=== PATIENT | male | born 1990 | race Caucasian/White ===

== ENCOUNTER 2016-12-10 01:56 | Emergency (ER) | payer MEDICAID ==
[~2016-12-10] VITALS: Ht 152.4 cm; Wt 102.1 kg
[~2016-12-10 01:56] MED LIST: NO HOME MEDS
[2016-12-10 03:30] VITALS: BP 137/89
== END 2016-12-10 03:55 | disposition home or self-care (01) ==
LOC: M ED 03:10
DX: T16.1XXA Foreign body in right ear, initial encounter (principal); Y92.9 Unspecified place or not applicable; Y93.9 Activity, unspecified; Q90.9 Down syndrome, unspecified; Z88.8 Allergy status to other drugs, medicaments and biological substances

== ENCOUNTER 2017-02-12 07:45 | Inpatient (IN) | payer MEDICAID ==
[~2017-02-12] VITALS: Ht 154.9 cm; Wt 150.0 kg
[2017-02-12] MEDS ORDERED: MORPHINE 2 MG/ML 1ML SYRINGE SC ONE (08:30)
--- NOTE | 2017-02-12 10:29 | REP ---
ABDOMEN FLAT AND UPRIGHT, PA CHEST, SEVEN VIEWS: HISTORY: Abdominal pain. The examination is very limited secondary to the patient's body habitus. Air is present in small and large intestine. There are no air fluid levels or dilated loops of intestine. There is no pneumoperitoneum. Linear density is present in the left lower lobe consistent with atelectasis or scar. IMPRESSION: 1. Nonspecific bowel gas pattern. 2. Left lower lobe atelectasis or scar. Signed by Thomas Ricardo MD 02/12/2017 10:32 A
[2017-02-12 10:50] LABS: BASO # 0.1 K/mm3 (0.0-0.2); EOS # 0.2 K/mm3 (0.0-0.50); EOS % 2.3 % (0.0-3.0); LARGE UNSTAINED CELL # 0.1 K/mm3 (0.0-0.4); LARGE UNSTAINED CELL % 0.9 % (0.0-4.0); LYMPH # 1.1 K/mm3 (1.5-6.5); LYMPH % 11.7 % (24.0-44.0); MEAN CORPUSCULAR HEMOGLOBIN 32.8 pg (27.0-33.0); MEAN CORPUSCULAR HGB CONC 31.7 g/dl (32.0-36.5); MEAN CORPUSCULAR VOLUME 103.6 fl (80.0-96.0); MONO # 0.4 K/mm3 (0.0-0.8); MONO % 4.1 % (0.0-5.0); NEUTROPHILS # 7.3 K/mm3 (1.8-7.7); NEUTROPHILS % 80.1 % (36.0-66.0); PLATELET COUNT, AUTOMATED 186 k/mm3 (150-450); RED CELL DISTRIBUTION WIDTH 15.3 % (11.5-14.5); WHITE BLOOD COUNT 9.1 K/mm3 (4.0-10.0)
[2017-02-12 11:17] LABS: ALBUMIN 2.9 GM/DL (3.2-5.2); ALBUMIN/GLOBULIN RATIO 0.59 (1.00-1.93); ALKALINE PHOSPHATASE 83 U/L (45-117); ALT/SGPT 29 U/L (12-78); ANION GAP 6 MEQ/L (8-16); AST/SGOT 23 U/L (15-37); BILIRUBIN,DIRECT 0.3 MG/DL (0.0-0.2); BILIRUBIN,TOTAL 0.9 MG/DL (0.2-1.0); BLOOD UREA NITROGEN 11 MG/DL (7-18); CALCIUM LEVEL 8.6 MG/DL (8.5-10.1); CARBON DIOXIDE LEVEL 31 MEQ/L (21-32); CHLORIDE LEVEL 102 MEQ/L (98-107); CREATININE FOR GFR 1.01 MG/DL (0.70-1.30); GLOMERULAR FILTRATION RATE > 60.0 (>60); GLUCOSE, FASTING 104 MG/DL (70-105); POTASSIUM SERUM 4.3 MEQ/L (3.5-5.1); SODIUM LEVEL 139 MEQ/L (136-145); TOTAL PROTEIN 7.8 GM/DL (6.4-8.2)
--- NOTE | 2017-02-12 12:12 | REP ---
CT CHEST WITHOUT CONTRAST: 02/12/2017. Comparison: Acute abdominal series 02/12/2017, portable chest 01/08/2015, abdominal series 07/08/2014. Clinical history: Hypoxia, airspace opacities on AP chest today. Findings: Noncontrast techniques with coronal and sagittal images are provided. There are small bilateral effusions which do extend to the apex. There is underlying interstitial infiltrates and patchy air space densities in both lungs. These are combined with some lateral hyperdense pleural plaques and may reflect small calcifications. Curvilinear scar right apex. The distal trachea above the jony is difficult to evaluate because of some respiratory motion blur. Question of partial collapse of the trachea versus filling defect/mucous. Heart size not grossly enlarged. There is no pericardial thickening or effusion. The aorta is intact. There is no pathologic sized mediastinal or hilar adenopathy. No axillary or supraclavicular mass. Bones show no significant degenerative change. The manubrium is bifid. The medial clavicles, ribs, scapula and portions of shoulders visible intact. Abdomen will be described in detail on the CT abdomen and pelvis report. Impression: 1. With interstitial and alveolar airspace opacities suggesting acute and chronic process. Some underlying fibrosis with patchy atelectasis or pneumonitis may certainly be suspected. Heavier curvilinear fibrotic change in the right apex. 2. No gross cardiomegaly, pericardial thickening or effusion. No adenopathy. 3. Bones without acute finding. Small bilateral effusions. Signed by Cuong Mishra MD 02/12/2017 07:06 P
--- NOTE | 2017-02-12 12:43 | REP ---
CT abdomen and pelvis without contrast: 02/12/2017 Comparison: Acute abdominal series 02/12/2017, CT abdomen and pelvis 11/30/2012. Clinical history: Abdominal pain. Small bilateral effusions and basilar alveolar and interstitial opacities noted bilaterally, see CT chest report. There is no hiatal hernia. Liver is not grossly enlarged, but the left hepatic lobe is enlarged. There is no splenomegaly or focal splenic lesion. I see no focal hepatic mass or biliary dilatation. There is a small amount of ascites in the abdomen and extending into the pelvis along the peroneal gutters to the upper level of the pelvis. Gallbladder shows no calcified stone. Exam somewhat limited by respiratory motion blur. Pancreas grossly unremarkable. Aorta without aneurysm. No adrenal abnormality seen. The kidneys show no stone, mass, cyst or hydronephrosis. Lung window review shows no perforation or free air. No dilated small bowel loops or colon. Fluid tracking along the peroneal gutters obscures portions of the right and left colon. Bone windows show bilateral spondylolysis at L5 with discogenic endplate changes at L5- S1 and anterolisthesis grade 1. No other acute bony findings in the spine. CT pelvis: Bony hips, pelvis, SI joints, sacrum and symphysis pubis were unremarkable. Extensive subcutaneous edema in the abdominal and pelvic wall particularly the lower abdomen and pelvis representing some anasarca. It is more anterior than lateral. I do not see dilated distal left colon, sigmoid or rectum. Small bowel loops are not dilated in the pelvis. There is no pelvic lymphadenopathy and no ventral hernia. Some inguinal nodes are seen bilaterally up to 18 mm for the largest node on the right. No other adenopathy. Impression: 1. Diffuse subcutaneous edema and skin thickening anteriorly of the abdominal and pelvic wall suggesting anasarca or other cause for this edema. 2. There is no renal, ureteral or bladder stone nor hydronephrosis. 3. No small-bowel dilatation, colonic obstruction or acute inflammatory process. 4. Enlarged left lobe of the liver, but small amount of ascites and fluid tracking into the peroneal gutters on both sides. No intra-abdominal or pelvic adenopathy. Bilateral inguinal adenopathy up to 18 mm for the largest nodes in short axis. Signed by Cuong Mishra MD 02/12/2017 07:08 P
[2017-02-12] MEDS: IPRATROPIUM 0.5MG/ALBUTEROL 2.5MG INH SOL UD 3ML (DUONEB)(J7620) NEB SCH ×5 (14:00→19:08)
--- NOTE | 2017-02-12 14:28 | HPEPDOC ---
Medical History and Physical Date of Admission 02/12/17 History and Physical ATTENDING: Dr. Lloyd PCP: None currently. Has upcoming appointment with Dr. Sybil Briceno to establish care. CC: abdominal pain HPI: 27yoM with a past medical history significant for Down syndrome accompanied by his mother, Kelly. His mother states he is nonverbal and typically does not respond to questioning. He had relayed to her this morning at about 6 AM that he had abdominal discomfort. There was no apparent nausea, vomiting, diarrhea, constipation, fevers or chills. He did not eat this morning. She has not noticed any coughing or rhinorrhea. No apparent sore throat. She denies any difficulty with swallowing, coughing when he is eating or history of dysphagia. He does become short of breath with climbing stairs. He does not use any assistive devices for ambulation. O2 sat on arrival to ED was noted to be 85% on RA. Currently 96% High flow canula. There is been no apparent change in bowel or bladder habits. Upon presentation to the hospital the patient was found to have possible pneumonia, thus the hospitalist team was consulted. PMHx: Seizure 1 as child 15 years ago. Asthma as child. No medications currently. History of Atrioventricular defect Down syndrome HUNTER/CPAP Morbid Obesity. BMI 64.4 Psoriasis PSHX: Adenoidectomy Tonsillectomy Tympanostomy tubes Atrioventricular defect repair SOCHX: Resides in: [facility], lives with mother. His mother Kelly is his legal guardian. Marital Status: Single Tobacco use: None ETOH: None Illicit Drugs: Denies Recent travel: None Advanced directives: None FAMHX: Mother: Alive, hypertension, hyperlipidemia Father: , cancer Siblings: 13 Alive, well Unexpected deaths due to medical reasons: None. ROS: Patient is not able to provide history. The patient's mother states they do have some difficulty caring for him at home because he tends to not cooperate with personal care such as nail cutting or dental care. Currently he does not receive any services in or outside the home and his mother would be interested in pursuing this. She also states she is attempting to set up a dental provider related to poor dentition. PE: GEN: 27yo male, appears stated age. Morbidly obese. Poor personal hygiene. Appearing in no acute distress sitting on the emergency department stretcher. Alert. Does not respond to questions. Will follow simple commands. HEENT: Normocephalic, atraumatic. Pupils are equal, round, and reactive to light. No nystagmus appreciated. Sclera are nonicteric. Conjunctiva without injection. Nose midline. No nasal drainage noted. EACs both patent with scaling skin noted. TMs both visualized and hebert with good cone of light, no bulging or erythema. No facial asymmetry. Moist mucous membranes. Dentition poor. Pharynx unable to be visualized related to patient cooperation. Neck supple, trachea midline. No lymphadenopathy or thyromegaly appreciated. CHEST: Regular rate and rhythm, +S1, +S2 LUNGS: Decreased breath sounds bilaterally. No noted wheezes, rales, or rhonchi , however poor effort. Breathing appears symmetric and easy. No accessory muscle use. ABD: Round, soft, non-tender, non-distended. +Bowel sounds throughout. No rebound or guarding. No apparent costovertebral angle tenderness. EXT: No lower extremity edema appreciated. SKIN: Diffuse skin scaling is noted over the upper extremities, back, abdomen and lower extremities. Overgrown nails are noted on the upper extremities and lower extremities. NEURO: No focal deficits appreciated. AXR: 1. Nonspecific bowel gas pattern. 2. Left lower lobe atelectasis or scar. CT: chest 1. With interstitial and alveolar airspace opacities suggesting acute and chronic process. Some underlying fibrosis with patchy atelectasis or pneumonitis may certainly be suspected. Heavier curvilinear fibrotic change in the right apex. 2. No gross cardiomegaly, pericardial thickening or effusion. No adenopathy. 3. Bones without acute finding. Small bilateral effusions. CT A/P 1. Diffuse subcutaneous edema and skin thickening anteriorly of the abdominal and pelvic wall suggesting anasarca or other cause for this edema. 2. There is no renal, ureteral or bladder stone nor hydronephrosis. 3. No small-bowel dilatation, colonic obstruction or acute inflammatory process. 4. Enlarged left lobe of the liver, but small amount of ascites and fluid tracking into the peroneal gutters on both sides. No intra-abdominal or pelvic adenopathy. Bilateral inguinal adenopathy up to 18 mm for the largest nodes in short axis. BLOOD CULTURES: x 2 pending. UA/UC pending A&P: 27yoM with a past medical history significant for Down syndrome accompanied by his mother, Kelly. His mother states he is nonverbal and typically does not respond to questioning. He had relayed to her this morning at about 6 AM that he had abdominal discomfort. 1. The patient will be admitted to /S for at least [address] Lloyd' s service. Patient is discussed with Dr. Nugent. 2. Pneumonia. Aspiration versus community-acquired. Initiate IV vancomycin, Zosyn, Levaquin until availability of further testing. IV fluids at 75cc/hr. Blood cultures/urine cultures pending. Monitor daily labs. Request swallowing evaluation. Nebulizer treatments. 3. Abdominal pain. Inguinal adenopathy and ascites noted on CT. IVF at 75cc/hr. IV antibiotics as above. 4. Morbid obesity. BMI noted to be 64.4. Complicates care. Add on TFT, Lipids and A1c to admission labs. 5. Down syndrome. Supportive care. Request PFS/PT/OT/ST. 6. HUNTER. Continue CPAP with home settings. 7. DVT prophylaxis. SQ Lovenox. The patient is a full code. Will need to confirm Pt has appt to establish care with Dr Briceno prior to D/C. Mother states appt is in the near future. Vital Signs Vital Signs Date Time Temp Pulse Resp B/P (MAP) Pulse Ox O2 Delivery O2 Flow Rate FiO2 02/12/17 12:17 16 140/72 (94) 96 High Flow Cannula 6.0 02/12/17 11:03 99 02/12/17 08:06 98.8 Laboratory Data Labs 24H Laboratory Tests 2 02/12/17 10:42: White Blood Count 9.1, Red Blood Count 4.90, Hemoglobin 16.1, Hematocrit 50.8, Mean Corpuscular Volume 103.6H, Mean Corpuscular Hemoglobin 32.8, Mean Corpuscular Hemoglobin Concent 31.7L, Red Cell Distribution Width 15.3H, Platelet Count 186, Neutrophils (%) (Auto) 80.1H, Lymphocytes (%) (Auto) 11.7L, Monocytes (%) (Auto) 4.1, Eosinophils (%) (Auto) 2.3, Basophils (%) (Auto) 1.0, Neutrophils # (Auto) 7.3, Lymphocytes # (Auto) 1.1L, Monocytes # (Auto) 0.4, Eosinophils # (Auto) 0.2, Basophils # (Auto) 0.1, Large Unclassified Cells % 0.9 , Large Unclassified Cells # 0.1, Anion Gap 6L, Glomerular Filtration Rate > 60.0, Calcium Level 8.6, Aspartate Amino Transf (AST/SGOT) 23, Alanine Aminotransferase (ALT/SGPT) 29, Alkaline Phosphatase 83, Total Bilirubin 0.9, Direct Bilirubin 0.3H, Total Protein 7.8, Albumin 2.9L, Albumin/Globulin Ratio 0.59L, Lipase 96 CBC/BMP Laboratory Tests 02/12/17 10:42 Red Blood Count 4.90, Mean Corpuscular Volume 103.6 H, Mean Corpuscular Hemoglobin 32.8, Mean Corpuscular Hemoglobin Concent 31.7 L, Red Cell Distribution Width 15.3 H, Neutrophils (%) (Auto) 80.1 H, Lymphocytes (%) (Auto ) 11.7 L, Monocytes (%) (Auto) 4.1, Eosinophils (%) (Auto) 2.3, Basophils (%) ( Auto) 1.0, Neutrophils # (Auto) 7.3, Lymphocytes # (Auto) 1.1 L, Monocytes # ( Auto) 0.4, Eosinophils # (Auto) 0.2, Basophils # (Auto) 0.1 Home Medications No Active Prescriptions or Reported Meds Allergies Coded Allergies: Cephalosporins (Verified Allergy, Intermediate, HIVES & RASH, 10/19/12) Nirmala Dodd Feb 12, 2017 14:28
[2017-02-12 14:46] LABS: ABG BASE EXCESS 4.5 (-2.0-2.0); ABG HCO3 33.7 MEQ/L (22.0-26.0); ABG PARTIAL PRESSURE CO2 69.9 mmHg (35.0-45.0); ABG PARTIAL PRESSURE O2 63.2 mmHg (75.0-100.0); ABG STANDARD HCO3 28.3 MEQ/L (22.0-26.0); ABG TOTAL CO2 35.8 MEQ/L (22.0-29.0); ABG pH (ARTERIAL) 7.301 UNITS (7.350-7.450)
[2017-02-12] MEDS ORDERED: methylPREDNISolone INJ 125 MG/2 ML VIAL (J2930) IV ONE (15:00)
[2017-02-12] MEDS ORDERED: IPRATROPIUM 0.5MG/ALBUTEROL 2.5MG INH SOL UD 3ML (DUONEB)(J7620) NEB PRN (15:15)
[2017-02-12] MEDS: ENOXAPARIN 40 MG/0.4 ML SYRINGE (J1650) SC SCH (15:39)
[2017-02-12 15:55] LABS: CHOLESTEROL LEVEL 127 MG/DL (<200); T UPTAKE 36 % (33-40); THYROXINE (T4) 8.6 UG/DL (4.5-12.0); TRIGLYCERIDES LEVEL 85 MG/DL (<150)
[2017-02-12] MEDS: PIPERACILLIN/TAZOBACTAM SOD 3.375 GM in D5W MINI-BAG PLUS 50 ML IV SCH ×2 (16:25→22:00)
[2017-02-12] MEDS: NS 1,000 ML IV SCH (16:25)
[2017-02-12] MEDS: LevoFLOXacin IV 750 MG in APPROPRIATE DILUENT 1 EA IV SCH (16:54)
--- NOTE | 2017-02-12 17:00 | PHACANCOPD ---
PHARMACY VANCOMYCIN DOSING Pt Demographics Demographics Patient Age:27 , Weight:154.600 , Gender: male Adjusted Body Weight Date: 02/12/17, Adjusted Body Weight: Kg Events Past 24 Hours Events Past 24 Hours: NO: Dialysis, Diuretic Therapy, Change in CrCl, Fever, Elevation in WBC, Pending Diagnostics, Pending Procedures, Other Vancomycin Vancomycin Target Ranges: 15-20 mcg/ml Vancomycin Load Y/N: Yes Load Dose Date Time Vancomycin Load Dose: 2G Date: 02/12/17 Time: 1800 Vancomycin Dose Date: 02/12/17. Current Vancomycin Dose: [1G IV Q8H] Intermittent Dosing?: No Labs Labs Item Value Date Time White Blood Count 9.1 K/mm3 02/12/17 1042 Creatinine 1.01 MG/DL 02/12/17 1042 Micro Microbiology 02/12/17 Blood Culture, Received Pending 02/12/17 Blood Culture, Received Pending Creatinine Clearance Date:02/12/17. Creatinine Clearance: [79.8]. Assessment and Plan Maintaining Current Dose?: Yes Reason for dose change: No Dose Change Pharmacist Note Pharmacist Note Date: 02/12/17. Pharmacist note: Pt. is a 27 year old male with down syndrome who was brought to the ER by his mother with symptoms of abdominal pain. During his visit it was discovered that he may have pneumonia. Pt. has no signs or symptoms of infection. Pt has no history of vanco use or MRSA at our facility. Pt will be started with Vanco 2G loading dose followed by 1G q8h@1900. A trough has been scheduled for tomorrow at 1800 just before the 4th dose. We will continue to monitor and adjust dose as needed. MARIS ROCHA PHARMACY Feb 12, 2017 17:00
[2017-02-12 17:45] VITALS: BP 134/79
[2017-02-12] MEDS ORDERED: VANCOMYCIN HCL 1,000 MG, VIAL MATE ADAPTER 1 EACH in D5W 250 ML IV ONE ×2 (19:00→20:00)
[2017-02-12] MEDS: VANCOMYCIN HCL 1,000 MG, VIAL MATE ADAPTER 1 EACH in D5W 250 ML IV SCH (19:00)
[2017-02-12 20:00] VITALS: BP 137/89
[2017-02-12 23:59] VITALS: BP 131/82
[2017-02-13] MEDS: IPRATROPIUM 0.5MG/ALBUTEROL 2.5MG INH SOL UD 3ML (DUONEB)(J7620) NEB SCH ×4 (02:07→20:46)
[2017-02-13] MEDS: VANCOMYCIN HCL 1,000 MG, VIAL MATE ADAPTER 1 EACH in D5W 250 ML IV SCH ×2 (03:00→12:13)
[2017-02-13 04:00] VITALS: BP 138/73
[2017-02-13] MEDS: PIPERACILLIN/TAZOBACTAM SOD 3.375 GM in D5W MINI-BAG PLUS 50 ML IV SCH ×4 (04:53→21:58)
[2017-02-13] MEDS: NS 1,000 ML IV SCH (05:39)
[2017-02-13 08:00] VITALS: BP 135/73
[2017-02-13] MEDS: ENOXAPARIN 40 MG/0.4 ML SYRINGE (J1650) SC SCH (10:47)
[2017-02-13 12:00] VITALS: BP 137/75
[2017-02-13] MEDS: NYSTATIN 100,000 UNITS/GM TOPICAL PWD 15 GM TOP SCH (15:51)
[2017-02-13 16:00] VITALS: BP 126/77
[2017-02-13] MEDS: LevoFLOXacin IV 750 MG in APPROPRIATE DILUENT 1 EA IV SCH (18:16)
[2017-02-13] MEDS: SODIUM CHLORIDE 0.9% INJ 10 ML SYR IV SCH (18:17)
--- NOTE | 2017-02-13 18:28 | IPNPDOC ---
Date Seen The patient was seen on 02/13/17. Progress Note Hospitalist Progress Note Subjective: Patient is very limited verbally, and has no specific complaints. Mom is with him, and notes that he seems to be breathing better than yesterday. Objective: Physical Exam: Vitals: Vital Sign - Last 24 Hours 02/12/17 02/12/17 02/12/17 02/12/17 19:08 20:00 20:00 23:59 Temp 97.8 97.9 Pulse 97 95 Resp 20 22 B/P (MAP) 137/89 (105) 131/82 (98) Pulse Ox 90 91 O2 Delivery Nasal Cannula Nasal Cannula Comfort Flow Comfort Flow O2 Flow Rate 10.0 10.0 10.0 10.0 02/13/17 02/13/17 02/13/17 02/13/17 02:07 04:00 08:00 09:17 Temp 99.0 99.1 Pulse 107 101 Resp 22 18 B/P (MAP) 138/73 (94) 135/73 (93) Pulse Ox 90 90 O2 Delivery Nasal Cannula Comfort Flow Comfort Flow Nasal Cannula O2 Flow Rate 10.0 10.0 10.0 10.0 02/13/17 02/13/17 02/13/17 02/13/17 12:00 12:00 12:46 13:00 Temp 99.6 Pulse 102 Resp 24 B/P (MAP) 137/75 (95) Pulse Ox 86 86 89 O2 Delivery High Flow Cannula Comfort Flow BIPAP/CPAP High Flow Cannula O2 Flow Rate 10.0 10.0 15.0 02/13/17 02/13/17 02/13/17 02/13/17 14:00 15:00 16:00 17:15 Temp 99.2 Pulse 94 Resp 24 B/P (MAP) 126/77 (93) Pulse Ox 86 88 91 O2 Delivery NIPPV (BIPAP/CPAP) NIPPV (BIPAP/CPAP) Comfort Flow Nasal Cannula O2 Flow Rate 10.0 10.0 General: AWake, alert, no acute distress HEENT: Normocephalic, atraumatic, extraocular movements intact CV: Regular rate and rhythm Lungs: Clear to auscultation bilaterally Abd: Obese, soft, nontender, pitting edema of the anterior abdominal wall Extremities: Bilateral knees are covered in hyperkeratotic, hyperpigmented plaques, intact pedal pulses, no edema appreciated Neuro: Alert, moving all extremities, minimally verbal Psych: Unable to assess Labs and Imaging: Laboratory Tests 02/12/17 10:42 Red Blood Count 4.90, Mean Corpuscular Volume 103.6 H, Mean Corpuscular Hemoglobin 32.8, Mean Corpuscular Hemoglobin Concent 31.7 L, Red Cell Distribution Width 15.3 H, Neutrophils (%) (Auto) 80.1 H, Lymphocytes (%) (Auto ) 11.7 L, Monocytes (%) (Auto) 4.1, Eosinophils (%) (Auto) 2.3, Basophils (%) ( Auto) 1.0, Neutrophils # (Auto) 7.3, Lymphocytes # (Auto) 1.1 L, Monocytes # ( Auto) 0.4, Eosinophils # (Auto) 0.2, Basophils # (Auto) 0.1 Assessment and Plan: 27-year-old male with Down syndrome, history of atrioventricular defect status post surgical repair, HUNTER on CPAP, morbid obesity, psoriasis, one episode of seizure as a child, childhood asthma who presented to the emergency department for abdominal pain. He has been found to have pneumonia on chest imaging. 1. Pneumonia: It is unclear if this is community-acquired or aspiration. At this time, we will continue IV vanc, Zosyn and Levaquin, but will likely narrow this tomorrow when his cultures are back. Blood cultures pending. The patient is afebrile with a normal white count but is requiring 10 L of oxygen. I suspect that his underlying HUNTER and probable obesity hypoventilation syndrome is exacerbating this. Speech therapy evaluation has cleared him for a pured diet with nectar thick liquids. Continue DuoNeb's. 2. HUNTER: Continue home CPAP 3. Prediabetes: The patient's A1c came back at 6.2. I have discussed this with his mom discussed the need for diet modification. She tells me that just in the last week and a half they have started having meals brought into the house and been significantly watching their portions. She states that in this time, he has lost 12 pounds. 4. Abdominal wall anasarca: CT of the abdomen and pelvis shows some diffuse subcutaneous edema that they describe as anasarca, and he does have pitting edema of his abdominal wall. We will assess with an echocardiogram. Stop IV fluids 5. Enlarged left liver lobe: This is noted on CT of abdomen and pelvis. LFTs and lipase are within normal limits. He will need continued follow-up of this with his PCP. DVT prophylaxis: Lovenox Dispo: change patient status to inpatient; appreciate the help of PT, OT, and case management, as this patient is requiring more care at home and his family is able to supply VS, I&O, 24H, Fishbone Vital Signs/I&O Vital Signs Date Time Temp Pulse Resp B/P (MAP) Pulse Ox O2 Delivery O2 Flow Rate FiO2 02/13/17 17:15 Nasal Cannula 10.0 02/13/17 16:00 99.2 94 24 126/77 (93) 91 I&O- Last 24 Hours up to 6 AM 02/13/17 06:00 Intake Total 1285 ml Output Total 400 ml Balance 885 ml Laboratory Data 24H LABS Laboratory Tests 2 02/13/17 18:08: Microbiology Microbiology 02/12/17 Blood Culture - Preliminary, Resulted No growth after 24 hours . All specim... 02/12/17 Blood Culture - Preliminary, Resulted No growth after 24 hours . All specim... CHASTITY BAXTER Feb 13, 2017 18:28
--- NOTE | 2017-02-13 18:52 | REP ---
Procedure: PICC line insertion with Sher The procedure was performed under the direct supervision of Dr. Mishra. The risks and benefits of the procedure were explained and informed consent was obtained by the health care proxy. The patient is unable to lay on the fluoroscopy table therefore the procedure was performed on the stretcher. The right cephalic vein was localized using ultrasound guidance. The skin was prepped and draped in a sterile fashion. 2% lidocaine was used as a local anesthetic. Using ultrasound guidance the cephalic vein was cannulated and a 0.018 guidewire was inserted and advanced to the SVC using fluoroscopic guidance. The needle was removed and a 5.5 Gibraltarian dilator and peel-away sheath was inserted over the guide wire. A 5.5 Gibraltarian dual lumen catheter was cut to length of 43 cm. The dilator was removed and the catheter was inserted over the guide wire with the tip ending in the SVC. The peel-away sheath was removed and the catheter was flushed with heparinized saline as per Hospital protocol. The catheter was affixed to the skin and a sterile dressing was applied. The the patient tolerated the procedure well and there were no immediate complications. No fluoroscopy time was used for this procedure. Reviewed by LUCIO Randhawa 02/13/2017 05:20 PSigned by Cuong Mishra MD 02/13/2017 06:43 P
[2017-02-13 19:53] LABS: MEAN CORPUSCULAR HEMOGLOBIN 32.6 pg (27.0-33.0); MEAN CORPUSCULAR HGB CONC 31.1 g/dl (32.0-36.5); MEAN CORPUSCULAR VOLUME 104.9 fl (80.0-96.0); RED CELL DISTRIBUTION WIDTH 15.3 % (11.5-14.5); WHITE BLOOD COUNT 9.5 K/mm3 (4.0-10.0)
[2017-02-13 20:00] VITALS: BP 118/74
[2017-02-13 20:00] LABS: ALBUMIN/GLOBULIN RATIO 0.73 (1.00-1.93); BILIRUBIN,TOTAL 0.9 MG/DL (0.2-1.0); CALCIUM LEVEL 8.4 MG/DL (8.5-10.1); CREATININE FOR GFR 1.51 MG/DL (0.70-1.30); GLOMERULAR FILTRATION RATE 58.5 (>60); POTASSIUM SERUM 4.4 MEQ/L (3.5-5.1); TOTAL PROTEIN 7.1 GM/DL (6.4-8.2)
[2017-02-13 20:48] LABS: MAGNESIUM LEVEL 2.5 MG/DL (1.8-2.4)
[2017-02-13] MEDS ORDERED: VANCOMYCIN HCL 1,000 MG, VIAL MATE ADAPTER 1 EACH in D5W 250 ML IV SCH (21:00)
[2017-02-13 23:59] VITALS: BP 119/66
[2017-02-14] MEDS: IPRATROPIUM 0.5MG/ALBUTEROL 2.5MG INH SOL UD 3ML (DUONEB)(J7620) NEB SCH ×4 (02:00→20:56)
[2017-02-14] MEDS: PIPERACILLIN/TAZOBACTAM SOD 3.375 GM in D5W MINI-BAG PLUS 50 ML IV SCH ×4 (03:05→21:43)
[2017-02-14] MEDS: SODIUM CHLORIDE 0.9% INJ 10 ML SYR IV SCH ×2 (03:06→19:34)
[2017-02-14 04:50] LABS: MEAN CORPUSCULAR HEMOGLOBIN 32.2 pg (27.0-33.0); MEAN CORPUSCULAR HGB CONC 30.7 g/dl (32.0-36.5); MEAN CORPUSCULAR VOLUME 105.1 fl (80.0-96.0); RED CELL DISTRIBUTION WIDTH 15.3 % (11.5-14.5); WHITE BLOOD COUNT 10.7 K/mm3 (4.0-10.0)
[2017-02-14 05:22] LABS: ALBUMIN 2.8 GM/DL (3.2-5.2); ALBUMIN/GLOBULIN RATIO 0.72 (1.00-1.93); CALCIUM LEVEL 8.3 MG/DL (8.5-10.1); CREATININE FOR GFR 1.57 MG/DL (0.70-1.30); GLOMERULAR FILTRATION RATE 55.9 (>60); POTASSIUM SERUM 4.4 MEQ/L (3.5-5.1); TOTAL PROTEIN 6.7 GM/DL (6.4-8.2)
[2017-02-14 08:00] VITALS: BP 104/68
[2017-02-14] MEDS: ENOXAPARIN 40 MG/0.4 ML SYRINGE (J1650) SC SCH (09:16)
[2017-02-14] MEDS: NYSTATIN 100,000 UNITS/GM TOPICAL PWD 15 GM TOP SCH (09:16)
[2017-02-14] MEDS: VANCOMYCIN HCL 1,000 MG, VIAL MATE ADAPTER 1 EACH in D5W 250 ML IV SCH ×2 (11:17→22:55)
[2017-02-14 12:00] VITALS: BP 110/56
[2017-02-14] MEDS: ACETAMINOPHEN TAB 650MG DOSE (2X325MG) PO PRN (12:13)
[2017-02-14 16:00] VITALS: BP 114/55
--- NOTE | 2017-02-14 16:34 | ECHO ---
DATE OF PROCEDURE: 02/13/2017 AGE: 27 GENDER: Male HEIGHT: 61 inches WEIGHT: 341 pounds BODY SURFACE AREA: 2.37 m2 PATIENT LOCATION: Inpatient, PCU, room 3229 REFERRING PHYSICIAN: Leslie Lloyd MD INDICATION: Edema. 2-D MEASUREMENTS: RV: 3.5 cm LV: 4.5 cm Septum: 1.1 cm Posterior wall: 1.1 cm Aortic root: 2.5 cm LA: 3.8 cm LVEF: 65% DOPPLER MEASUREMENTS: MV-E: 160, A: 120, EA ratio: 1.3 Early mitral deceleration time: 280 ms PV: 1.0 m/s Pulmonary artery acceleration time: 120 ms PASP: 25 mmHg COMMENTS: Normal sinus rhythm without intraventricular conduction disturbance. Occasional late cycle premature ventricular contraction (PVC). Technically difficult study in light of the patient's body habitus, but some diagnostically useful information was still obtained. Left atrial size upper limits of normal. Left ventricle (LV) wall thickness was upper limits of normal. On real-time imaging from the parasternal and apical projections wall motion appeared to be symmetrical and normal to hyperkinetic. Moderate thickening of the mitral annulus with slightly thickened mitral leaflets, but adequate leaflet excursion and no posterior systolic buckling. Challenging, but suspected three equal size aortic cusps of normal thickness and cusp separation. Normal aortic root size. Unable to detect an intracardiac mass with minuscule posterior pericardial echo-free space, question 4 mm. Color flow Doppler study taken from the parasternal and apical projections was technically difficult, but did not show any clear-cut mitral, tricuspid, or aortic insufficiency. Because of poor alignment we could not interrogate his aortic valve with Doppler accurately Pulsed and continuous wave Doppler of his LV inflow tract taken from the apical four-chamber projection showed normal diastolic filling velocities against mitral stenosis. His filling pattern appeared to be normal. Pulsed and continuous wave Doppler of his pulmonary trunk showed a normal peak systolic velocity against right ventricle (RV) outflow tract obstruction. His pulmonary artery acceleration time was normal against an elevated pulmonary vascular resistance. CONCLUSIONS: Technically difficult study in light of the patient's body habitus. Normal left ventricular size, wall thickness and wall motion. Left atrial size upper limits of normal without clear evidence of LV diastolic dysfunction. Normal right heart chamber sizes and wall motion with single Doppler sign suggesting a normal pulmonary arterial pressure. Inferior vena cava (IVC) could not be visualized to estimate central venous pressure. Thickening of the mitral valvular apparatus without evidence of mitral stenosis or insufficiency at this time.
[2017-02-14] MEDS: LevoFLOXacin IV 750 MG in APPROPRIATE DILUENT 1 EA IV SCH (17:41)
--- NOTE | 2017-02-14 17:56 | IPNPDOC ---
Date Seen The patient was seen on 02/14/17. Progress Note Hospitalist Progress Note Subjective: Overnight, the nursing staff attempted to place a dave secondary to the patient desatting whenever they laid him flat to change his sheets after incontinence. They met resistance and he began having aris hematuria with clots. Despite multiple attempts by ICU nurses to place a coude, they were not able to successfully cath him and he continues to have aris hematuria with clots. Objective: Physical Exam: Vitals: Vital Sign - Last 24 Hours 02/13/17 02/13/17 02/13/17 02/13/17 20:00 20:00 20:46 22:00 Temp 98.5 Pulse 89 Resp 20 B/P (MAP) 118/74 (89) Pulse Ox 90 O2 Delivery Nasal Cannula Comfort Flow Nasal Cannula Nasal Cannula O2 Flow Rate 10.0 10.0 15.0 10.0 02/13/17 02/14/17 02/14/17 02/14/17 23:59 00:00 02:00 04:00 Temp 98.6 Pulse 83 Resp 22 B/P (MAP) 119/66 (83) Pulse Ox 90 O2 Delivery Comfort Flow Nasal Cannula Nasal Cannula Nasal Cannula O2 Flow Rate 10.0 10.0 10.0 10.0 02/14/17 02/14/17 02/14/17 02/14/17 06:00 08:00 09:00 12:00 Temp 98.1 98.4 Pulse 99 97 Resp 18 20 B/P (MAP) 104/68 (80) 110/56 (74) Pulse Ox 83 87 O2 Delivery Nasal Cannula High Flow Cannula Nasal Cannula High Flow Cannula O2 Flow Rate 10.0 10.0 10.0 10.0 02/14/17 02/14/17 12:52 16:00 Temp 99.0 Pulse 97 Resp 20 B/P (MAP) 114/55 (74) Pulse Ox 95 O2 Delivery Nasal Cannula High Flow Cannula O2 Flow Rate 10.0 10.0 General: AWake, alert, gets very agitated when we try to lay him down HEENT: Normocephalic, atraumatic, extraocular movements intact CV: Regular rate and rhythm Lungs: Clear to auscultation bilaterally Abd: Obese, soft, nontender, pitting edema of the anterior abdominal wall Genitalia: There is blood on the josselyn he is sitting on, and examination of his penis reveals continued aris hematuria Extremities: Bilateral knees are covered in hyperkeratotic, hyperpigmented plaques, intact pedal pulses, no edema appreciated Neuro: Alert, moving all extremities, minimally verbal Labs and Imaging: Laboratory Tests 02/13/17 18:08 Red Blood Count 4.50, Mean Corpuscular Volume 104.9 H, Mean Corpuscular Hemoglobin 32.6, Mean Corpuscular Hemoglobin Concent 31.1 L, Red Cell Distribution Width 15.3 H, Calcium Level 8.4 L, Aspartate Amino Transf (AST/SGOT ) 23, Alanine Aminotransferase (ALT/SGPT) 27, Alkaline Phosphatase 71, Total Bilirubin 0.9, Total Protein 7.1, Albumin 3.0 L 02/14/17 04:35 Red Blood Count 4.19 L, Mean Corpuscular Volume 105.1 H, Mean Corpuscular Hemoglobin 32.2, Mean Corpuscular Hemoglobin Concent 30.7 L, Red Cell Distribution Width 15.3 H, Calcium Level 8.3 L, Aspartate Amino Transf (AST/SGOT ) 19, Alanine Aminotransferase (ALT/SGPT) 27, Alkaline Phosphatase 64, Total Bilirubin 1.0, Total Protein 6.7, Albumin 2.8 L 02/14/17 13:56 Assessment and Plan: 27-year-old male with Down syndrome, history of atrioventricular defect status post surgical repair, HUNTER on CPAP, morbid obesity, psoriasis, one episode of seizure as a child, childhood asthma who presented to the emergency department for abdominal pain. He has been found to have pneumonia on chest imaging. Last night he experienced a traumatic dave placement attempt and is now having aris hematuria with clots. 1. Pneumonia: It is unclear if this is community-acquired or aspiration. At this time, we will continue IV vanc, Zosyn and Levaquin. Blood cultures pending. The patient is afebrile with a normal white count but is requiring 10 L of oxygen. I suspect that his underlying HUNTER and probable obesity hypoventilation syndrome is exacerbating this. Speech therapy evaluation has cleared him for a pured diet with nectar thick liquids. Continue DuoNeb's. 2. HUNTER: Continue home CPAP 3. Prediabetes: The patient's A1c came back at 6.2. I have discussed this with his mom discussed the need for diet modification. She tells me that just in the last week and a half they have started having meals brought into the house and been significantly watching their portions. She states that in this time, he has lost 12 pounds. 4. Abdominal wall anasarca: CT of the abdomen and pelvis shows some diffuse subcutaneous edema that they describe as anasarca, and he does have pitting edema of his abdominal wall. Echocardiogram reveals normal EF and no evidence of RHF or diastolic dysfunction. 5. Enlarged left liver lobe: This is noted on CT of abdomen and pelvis. LFTs and lipase are within normal limits. He will need continued follow-up of this with his PCP. 6. Traumatic dave attempt on night of 02/13 with resultant hematuria, clots, and acute blood loss anemia: Unfortunately, we did not have any urology coverage today until 5pm today. I spoke to Dr. Herman about 9am about the situation, but he was unfortunately scrubbed in the OR in the midst of a several hour case and said he was unable to help but recommended trying to get a coude placed, as we had planned. I called Dr. Wakefield, but his phone went to voicemail and his voicemail was not available to accept messages. He called back to the PCU, and I was able to speak to him at 9:24am. Despite the fact that I explained that he was having aris hematuria with clots and no urine and that his Hgb had dropped more than a point since last night and his Cr had gone from 1.1 to 1.57 , he told me that this "was not an emergent situation" and he was busy in the office and would not be able to help. With the help of my colleagues and several members of the nursing staff (about 7-8 people total) to retract foreskin and pannus and hold down extremities as the patient's limited mental abilities caused him to fight all our efforts, we were eventually able to place a 16F coude catheter after about 45 minutes of trying. Despite our best efforts , we were not able to complete this as a sterile procedure. For this reason, I have continued him on broad antibiotics. With placement of the catheter, his hematuria cleared on its own without irrigation. Continue to monitor. 7. ALHAJI: Secondary to clots from traumatic dave insertion causing transient retention. I anticipate this will improve now that the catheter is in place. DVT prophylaxis: change to SCDs Dispo: appreciate the help of PT, OT, and case management, as this patient is requiring more care at home than his family is able to supply VS, I&O, 24H, Fishbone Vital Signs/I&O Vital Signs Date Time Temp Pulse Resp B/P (MAP) Pulse Ox O2 Delivery O2 Flow Rate FiO2 02/14/17 16:00 99.0 97 20 114/55 (74) 95 High Flow Cannula 10.0 I&O- Last 24 Hours up to 6 AM 02/14/17 06:00 Intake Total 1567.5 ml Output Total 0 ml Balance 1567.5 ml Laboratory Data 24H LABS Laboratory Tests 2 02/13/17 18:08: Anion Gap 9, Glomerular Filtration Rate 58.5L, Blood Urea Nitrogen 15, Creatinine 1.51H, Sodium Level 141, Potassium Level 4.4, Chloride Level 101, Carbon Dioxide Level 31, Calcium Level 8.4L, Aspartate Amino Transf (AST/SGOT) 23, Alanine Aminotransferase (ALT/SGPT) 27, Alkaline Phosphatase 71, Total Bilirubin 0.9, Total Protein 7.1, Albumin 3.0L, Magnesium Level 2.5H, Albumin/ Globulin Ratio 0.73L, Vancomycin Level Trough 26.4*H 02/14/17 04:35: Anion Gap 6L, Glomerular Filtration Rate 55.9L, Blood Urea Nitrogen 17, Creatinine 1.57H, Sodium Level 140, Potassium Level 4.4, Chloride Level 100, Carbon Dioxide Level 34H, Calcium Level 8.3L, Aspartate Amino Transf (AST/SGOT) 19, Alanine Aminotransferase (ALT/SGPT) 27, Alkaline Phosphatase 64, Total Bilirubin 1.0, Total Protein 6.7, Albumin 2.8L, Albumin/Globulin Ratio 0.72L 02/14/17 07:31: B-Type Natriuretic Peptide 105H 02/14/17 13:48: Urine Appearance CLOUDYH, Urine Color YELLOW, Urine pH 5.0, Urine Specific [place] 1.015, Urine Protein 1+H, Urine Glucose (UA) NEGATIVE, Urine Ketones NEGATIVE, Urine Urobilinogen 2.0H, Urine Bilirubin NEGATIVE, Urine Leukocyte Esterase NEGATIVE, Urine Blood 3+H, Urine Nitrite NEGATIVE, Urine WBC (Auto) 18H , Urine RBC (Auto) TNTCH, Urine Hyaline Casts (Auto) 0, Urine Bacteria (Auto) NEGATIVE, Urine Squamous Epithelial Cells 0, Urine Amorphous Sediment SMALLH, Urine Sperm (Auto) CBC/BMP Laboratory Tests 02/13/17 18:08 Red Blood Count 4.50, Mean Corpuscular Volume 104.9 H, Mean Corpuscular Hemoglobin 32.6, Mean Corpuscular Hemoglobin Concent 31.1 L, Red Cell Distribution Width 15.3 H, Calcium Level 8.4 L, Aspartate Amino Transf (AST/SGOT ) 23, Alanine Aminotransferase (ALT/SGPT) 27, Alkaline Phosphatase 71, Total Bilirubin 0.9, Total Protein 7.1, Albumin 3.0 L 02/14/17 04:35 Red Blood Count 4.19 L, Mean Corpuscular Volume 105.1 H, Mean Corpuscular Hemoglobin 32.2, Mean Corpuscular Hemoglobin Concent 30.7 L, Red Cell Distribution Width 15.3 H, Calcium Level 8.3 L, Aspartate Amino Transf (AST/SGOT ) 19, Alanine Aminotransferase (ALT/SGPT) 27, Alkaline Phosphatase 64, Total Bilirubin 1.0, Total Protein 6.7, Albumin 2.8 L 02/14/17 13:56 Microbiology Microbiology 02/12/17 Blood Culture - Preliminary, Resulted No Growth after 48 hours. All Specime... 02/12/17 Blood Culture - Preliminary, Resulted No Growth after 48 hours. All Specime... 02/14/17 Urine Culture, Received Pending CHASTITY BAXTER Feb 14, 2017 17:56
[2017-02-14 20:00] VITALS: BP 131/78
[2017-02-15] VITALS (8 sets, daily range): BP systolic 105–135; BP diastolic 54–81; O2SAT 88
[2017-02-15] MEDS: IPRATROPIUM 0.5MG/ALBUTEROL 2.5MG INH SOL UD 3ML (DUONEB)(J7620) NEB SCH ×4 (01:19→20:34)
[2017-02-15] MEDS: PIPERACILLIN/TAZOBACTAM SOD 3.375 GM in D5W MINI-BAG PLUS 50 ML IV SCH ×4 (04:13→23:17)
[2017-02-15] MEDS: SODIUM CHLORIDE 0.9% INJ 10 ML SYR IV SCH ×2 (05:57→17:21)
[2017-02-15 06:22] LABS: MEAN CORPUSCULAR HEMOGLOBIN 32.3 pg (27.0-33.0); MEAN CORPUSCULAR HGB CONC 30.6 g/dl (32.0-36.5); MEAN CORPUSCULAR VOLUME 105.6 fl (80.0-96.0); WHITE BLOOD COUNT 9.1 K/mm3 (4.0-10.0)
[2017-02-15 06:41] LABS: ALBUMIN 2.7 GM/DL (3.2-5.2); ALBUMIN/GLOBULIN RATIO 0.68 (1.00-1.93); BILIRUBIN,TOTAL 1.3 MG/DL (0.2-1.0); CALCIUM LEVEL 8.6 MG/DL (8.5-10.1); CREATININE FOR GFR 1.5 MG/DL (0.70-1.30); GLOMERULAR FILTRATION RATE 58.9 (>60); MAGNESIUM LEVEL 2.5 MG/DL (1.8-2.4); POTASSIUM SERUM 4.4 MEQ/L (3.5-5.1); TOTAL PROTEIN 6.7 GM/DL (6.4-8.2)
[2017-02-15] MEDS: NYSTATIN 100,000 UNITS/GM TOPICAL PWD 15 GM TOP SCH (09:55)
[2017-02-15] MEDS: VANCOMYCIN HCL 1,000 MG, VIAL MATE ADAPTER 1 EACH in D5W 250 ML IV SCH ×2 (11:02→23:17)
[2017-02-15] MEDS: ACETAMINOPHEN TAB 650MG DOSE (2X325MG) PO PRN (12:37)
[2017-02-15] MEDS: SODIUM CHLORIDE 0.9% INJ 10 ML SYR IV PRN ×2 (13:45→19:02)
--- NOTE | 2017-02-15 13:54 | IPNPDOC ---
Date Seen The patient was seen on 02/15/17. Progress Note Hospitalist Progress Note Subjective: per mom, patient is doing better; eating more, more alert and talkative Objective: Physical Exam: Vitals: Vital Sign - Last 24 Hours 02/14/17 02/14/17 02/14/17 02/14/17 16:00 20:00 20:00 20:50 Temp 99.0 97.3 Pulse 97 92 Resp 20 20 B/P (MAP) 114/55 (74) 131/78 (95) Pulse Ox 95 93 O2 Delivery High Flow Cannula Nasal Cannula High Flow Cannula Nasal Cannula O2 Flow Rate 10.0 25.0 10.0 25.0 02/15/17 02/15/17 02/15/17 02/15/17 00:00 04:00 07:50 08:00 Temp 97.1 97.9 98.0 Pulse 87 88 93 Resp 26 24 18 B/P (MAP) 129/81 (97) 128/76 (93) 133/60 (84) Pulse Ox 94 92 93 O2 Delivery High Flow Cannula High Flow Cannula Nasal Cannula High Flow Cannula O2 Flow Rate 25.0 25.0 25.0 25.0 General: [place], alert, no acute distress HEENT: Normocephalic, atraumatic, extraocular movements intact CV: Regular rate and rhythm Lungs: Clear to auscultation bilaterally Abd: Obese, soft, nontender, pitting edema of the anterior abdominal wall Extremities: Bilateral knees are covered in hyperkeratotic, hyperpigmented plaques, intact pedal pulses, no edema appreciated Neuro: Alert, moving all extremities, minimally verbal Labs and Imaging: Laboratory Tests 02/14/17 13:56 02/14/17 20:18 02/15/17 00:50 02/15/17 05:46 Red Blood Count 4.05 L, Mean Corpuscular Volume 105.6 H, Mean Corpuscular Hemoglobin 32.3, Mean Corpuscular Hemoglobin Concent 30.6 L, Red Cell Distribution Width 15.0 H, Calcium Level 8.6, Aspartate Amino Transf (AST/SGOT) 19, Alanine Aminotransferase (ALT/SGPT) 26, Alkaline Phosphatase 62, Total Bilirubin 1.3 H, Total Protein 6.7, Albumin 2.7 L Assessment and Plan: 27-year-old male with Down syndrome, history of atrioventricular defect status post surgical repair, HUNTER on CPAP, morbid obesity, psoriasis, one episode of seizure as a child, childhood asthma who presented to the emergency department for abdominal pain. He has been found to have pneumonia on chest imaging. The night of 02/13 he experienced a traumatic dave placement attempt. 1. Pneumonia: It is unclear if this is community-acquired or aspiration. At this time, we will continue IV vanc, Zosyn and Levaquin. Blood cultures negative. The patient is afebrile with a normal white count but is requiring 25 L comfort flow of oxygen. I suspect that his underlying HUNTER and probable obesity hypoventilation syndrome is exacerbating this. Speech therapy evaluation has cleared him for a pured diet with nectar thick liquids. Continue DuoNeb's. Given the patient's high O2 requirements, will reassess with CT chest. 2. HUNTER: Continue home CPAP. Per my discussion with RT, the CPAP machine that the family brought in was broken, although the mom insists that the patient uses it at home. RT has provided him with one of our CPAPs to use, but he struggles to tolerate the mask, secondary to impaired cognition. I have stressed with the mom the absolute importance of helping us encourage him to wear it, as he is not going to get off of the oxygen or recover from the PNA if he does not wear the CPAP. 3. Prediabetes: The patient's A1c came back at 6.2. I have discussed this with his mom discussed the need for diet modification. She tells me that just in the last week and a half they have started having meals brought into the house and been significantly watching their portions. She states that in this time, he has lost 12 pounds. 4. Abdominal wall anasarca: CT of the abdomen and pelvis shows some diffuse subcutaneous edema that they describe as anasarca, and he does have pitting edema of his abdominal wall. Echocardiogram reveals normal EF and no evidence of RHF or diastolic dysfunction. 5. Enlarged left liver lobe: This is noted on CT of abdomen and pelvis. LFTs and lipase are within normal limits. He will need continued follow-up of this with his PCP. 6. Traumatic dave attempt on night of 02/13 with resultant hematuria, clots, and acute blood loss anemia: Now has a 16F ca[address] in place and it is draining clear urine with no evidence of hematuria. Despite our best efforts, we were not able to complete this as a sterile procedure (please see note from 02/14). For this reason, I have continued him on broad antibiotics. Continue to monitor. 7. ALHAJI: Secondary to clots from traumatic dave insertion causing transient retention. I anticipate this will improve now that the catheter is in place. DVT prophylaxis: SCDs Dispo: appreciate the help of PT, OT, and case management, as this patient is requiring more care at home than his family is able to supply VS, I&O, 24H, Fishbone Vital Signs/I&O Vital Signs Date Time Temp Pulse Resp B/P (MAP) Pulse Ox O2 Delivery O2 Flow Rate FiO2 02/15/17 08:00 98.0 93 18 133/60 (84) 93 High Flow Cannula 25.0 I&O- Last 24 Hours up to 6 AM 02/15/17 06:00 Intake Total 360 ml Output Total 1325 ml Balance -965 ml Laboratory Data 24H LABS Laboratory Tests 2 02/14/17 13:48: Urine Appearance CLOUDYH, Urine Color YELLOW, Urine pH 5.0, Urine Specific [place] 1.015, Urine Protein 1+H, Urine Glucose (UA) NEGATIVE, Urine Ketones NEGATIVE, Urine Urobilinogen 2.0H, Urine Bilirubin NEGATIVE, Urine Leukocyte Esterase NEGATIVE, Urine Blood 3+H, Urine Nitrite NEGATIVE, Urine WBC (Auto) 18H , Urine RBC (Auto) TNTCH, Urine Hyaline Casts (Auto) 0, Urine Bacteria (Auto) NEGATIVE, Urine Squamous Epithelial Cells 0, Urine Amorphous Sediment SMALLH, Urine Sperm (Auto) 02/15/17 05:46: Anion Gap 9, Glomerular Filtration Rate 58.9L, Blood Urea Nitrogen 13, Creatinine 1.50H, Sodium Level 141, Potassium Level 4.4, Chloride Level 99, Carbon Dioxide Level 33H, Calcium Level 8.6, Aspartate Amino Transf (AST/SGOT) 19, Alanine Aminotransferase (ALT/SGPT) 26, Alkaline Phosphatase 62, Total Bilirubin 1.3H, Total Protein 6.7, Albumin 2.7L, Magnesium Level 2.5H, Albumin/ Globulin Ratio 0.68L CBC/BMP Laboratory Tests 02/14/17 13:56 02/14/17 20:18 02/15/17 00:50 02/15/17 05:46 Red Blood Count 4.05 L, Mean Corpuscular Volume 105.6 H, Mean Corpuscular Hemoglobin 32.3, Mean Corpuscular Hemoglobin Concent 30.6 L, Red Cell Distribution Width 15.0 H, Calcium Level 8.6, Aspartate Amino Transf (AST/SGOT) 19, Alanine Aminotransferase (ALT/SGPT) 26, Alkaline Phosphatase 62, Total Bilirubin 1.3 H, Total Protein 6.7, Albumin 2.7 L Microbiology Microbiology 02/12/17 Blood Culture - Preliminary, Resulted No Growth after 48 hours. All Specime... 02/12/17 Blood Culture - Preliminary, Resulted No Growth after 48 hours. All Specime... 02/14/17 Urine Culture, Received Pending CHASTITY BAXTER Feb 15, 2017 13:54
[2017-02-15] MEDS: LevoFLOXacin IV 750 MG in APPROPRIATE DILUENT 1 EA IV SCH (17:20)
[2017-02-16] VITALS (9 sets, daily range): BP systolic 124–140; BP diastolic 52–74; O2SAT 87–92
[2017-02-16] MEDS: IPRATROPIUM 0.5MG/ALBUTEROL 2.5MG INH SOL UD 3ML (DUONEB)(J7620) NEB SCH ×4 (01:24→20:25)
[2017-02-16] MEDS: SODIUM CHLORIDE 0.9% INJ 10 ML SYR IV PRN ×2 (01:59→16:36)
[2017-02-16] MEDS: PIPERACILLIN/TAZOBACTAM SOD 3.375 GM in D5W MINI-BAG PLUS 50 ML IV SCH ×2 (04:57→10:39)
[2017-02-16] MEDS: SODIUM CHLORIDE 0.9% INJ 10 ML SYR IV SCH ×2 (05:05→18:00)
[2017-02-16 05:18] LABS: MEAN CORPUSCULAR HEMOGLOBIN 32.4 pg (27.0-33.0); MEAN CORPUSCULAR HGB CONC 31.2 g/dl (32.0-36.5); MEAN CORPUSCULAR VOLUME 103.9 fl (80.0-96.0); RED CELL DISTRIBUTION WIDTH 14.8 % (11.5-14.5); WHITE BLOOD COUNT 9.4 K/mm3 (4.0-10.0)
[2017-02-16 05:42] LABS: ALBUMIN 2.9 GM/DL (3.2-5.2); ALBUMIN/GLOBULIN RATIO 0.67 (1.00-1.93); BILIRUBIN,TOTAL 1.6 MG/DL (0.2-1.0); CALCIUM LEVEL 8.7 MG/DL (8.5-10.1); CREATININE FOR GFR 1.53 MG/DL (0.70-1.30); GLOMERULAR FILTRATION RATE 57.6 (>60); MAGNESIUM LEVEL 2.5 MG/DL (1.8-2.4); POTASSIUM SERUM 4.5 MEQ/L (3.5-5.1); TOTAL PROTEIN 7.2 GM/DL (6.4-8.2)
[2017-02-16] MEDS ORDERED: FLEET ENEMA PR PRN (07:15)
[2017-02-16] MEDS ORDERED: MOM 30ML SUSPENSION UDC PO PRN (07:15)
[2017-02-16] MEDS: NS 1,000 ML IV SCH (07:34)
[2017-02-16] MEDS: MIRALAX *UNIT DOSE* 17GM PACKET PO SCH (10:38)
[2017-02-16] MEDS: DOCUSATE SODIUM 100 MG CAP PO SCH ×2 (10:38→21:13)
[2017-02-16] MEDS: ACETAMINOPHEN TAB 650MG DOSE (2X325MG) PO PRN ×2 (10:38→22:00)
[2017-02-16] MEDS: NYSTATIN 100,000 UNITS/GM TOPICAL PWD 15 GM TOP SCH (10:39)
[2017-02-16 10:40] LABS: VENOUS BASE EXCESS 7.2 (-2.0-2.0); VENOUS O2 SATURATION 87.8 % (60.0-80.0); VENOUS PARTIAL PRESSURE CO2 69.6 mmHg (38.0-50.0); VENOUS PARTIAL PRESSURE O2 56.2 mmHg (30.0-50.0); VENOUS STANDARD HCO3 30.8 MEQ/L; VENOUS TOTAL CO2 37.8 MEQ/L (24.0-28.0)
--- NOTE | 2017-02-16 10:52 | REP ---
AP PORTABLE CHEST: 02/16/2017. Comparison: Chest x-ray and CT 02/12/2017. Portable chest 01/08/2015. Clinical history: Dyspnea, increased O2 needs. Findings: Portable seated chest is technically quite limited due to extreme body habitus. Adequate level of inflation and improved compared to previous study. Extensive alveolar and interstitial opacities are again seen. There is underlying chronic interstitial change, but with superimposed airspace disease, greater right than left. There is actually slight improvement in the left upper lung zone, but the same or worsening in the right lower lung zone. I could not exclude pulmonary edema or infiltrates. Small effusions were seen on the CT and are difficult to visualize on this portable chest. Signed by Cuong Mishra MD 02/16/2017 05:57 P
[2017-02-16] MEDS: VANCOMYCIN HCL 1,000 MG, VIAL MATE ADAPTER 1 EACH in D5W 250 ML IV SCH (13:35)
[2017-02-16] MEDS: MEROPENEM INJ 1 GM in D5W MINI-BAG PLUS 100 ML IV SCH ×2 (13:37→21:13)
--- NOTE | 2017-02-16 15:37 | IPNPDOC ---
Date Seen The patient was seen on 02/16/17. Progress Note Hospitalist Progress Note Subjective: per mom, patient is holding himself in from having a bowel movement; she is also concerned that he does not like the pureed diet Objective: Physical Exam: Vitals: Vital Sign - Last 24 Hours 02/15/17 02/15/17 02/15/17 02/15/17 16:00 20:00 20:16 20:35 Temp 99.0 99.4 Pulse 100 99 Resp 18 B/P (MAP) 105/54 (71) 125/62 (83) Pulse Ox 87 89 O2 Delivery High Flow Cannula Nasal Cannula High Flow Cannula Nasal Cannula O2 Flow Rate 25.0 25.0 25.0 30.0 02/15/17 02/15/17 02/16/17 02/16/17 20:35 23:59 00:00 04:45 Temp 98.8 100.8 Pulse 96 87 Resp 22 22 B/P (MAP) 125/74 (91) 131/74 (93) Pulse Ox 88 89 87 O2 Delivery Nasal Cannula High Flow Cannula Nasal Cannula High Flow Cannula O2 Flow Rate 25.0 30.0 30.0 30.0 02/16/17 02/16/17 02/16/17 07:24 08:00 12:00 Temp 99.1 99.9 Pulse 111 117 Resp 22 22 B/P (MAP) 125/52 (76) 124/68 (86) Pulse Ox 86 97 O2 Delivery Nasal Cannula High Flow Cannula High Flow Cannula O2 Flow Rate 30.0 30.0 30.0 General: Awake, alert,mild distress HEENT: Normocephalic, atraumatic, extraocular movements intact CV: Regular rate and rhythm Lungs: Clear to auscultation bilaterally but working hard to breathe Abd: Obese, soft, nontender, pitting edema of the anterior abdominal wall Extremities: Bilateral knees are covered in hyperkeratotic, hyperpigmented plaques, intact pedal pulses, no edema appreciated Neuro: Alert, minimally verbal Labs and Imaging: Laboratory Tests 02/15/17 19:05 02/16/17 04:54 Red Blood Count 4.03 L, Mean Corpuscular Volume 103.9 H, Mean Corpuscular Hemoglobin 32.4, Mean Corpuscular Hemoglobin Concent 31.2 L, Red Cell Distribution Width 14.8 H, Calcium Level 8.7, Aspartate Amino Transf (AST/SGOT) 19, Alanine Aminotransferase (ALT/SGPT) 23, Alkaline Phosphatase 65, Total Bilirubin 1.6 H, Total Protein 7.2, Albumin 2.9 L Assessment and Plan: 27-year-old male with Down syndrome, history of atrioventricular defect status post surgical repair, HUNTER on CPAP, morbid obesity, psoriasis, one episode of seizure as a child, childhood asthma who presented to the emergency department for abdominal pain. He has been found to have pneumonia on chest imaging. The night of 02/13 he experienced a traumatic dave placement attempt. 1. Pneumonia: It is unclear if this is community-acquired or aspiration. Blood cultures negative. The patient has had a normal white count but is requiring 30 L comfort flow of oxygen to keep his sats only in . I suspect that his underlying HUNTER and probable obesity hypoventilation syndrome is exacerbating this. Speech therapy evaluation has cleared him for a pured diet with nectar thick liquids. Last night he had a fever to 100.8. He has been on vanc/levaquin /zosyn, but we will change to vanc and merrem. Continue DuoNeb's. Given the patient's high O2 requirements, I wanted to get a CT chest yesterday but the patient is unable to tolerate laying flat. I attempted a 2v CXR this morning, but he was not able to keep his sats up long enough to go downstairs, so we had no options but to do a portable, which did not give much useful information. I also attempted to get an ABG, but RT reports that the patient was very combative when they tried to obtain this and they were worried they would strip his artery, so we opted for a VBG which could be drawn off the PICC. I have asked Dr. Duong of pulmonology for her help in managing this patient. 2. HUNTER: Continue home CPAP, although the patient refuses to wear it. Per my discussion with RT, the CPAP machine that the family brought in was broken, although the mom insists that the patient uses it at home. RT has provided him with one of our CPAPs to use, but he struggles to tolerate the mask, secondary to impaired cognition. I have stressed with the mom the absolute importance of helping us encourage him to wear it, as he is not going to get off of the oxygen or recover from the PNA if he does not wear the CPAP. 3. Prediabetes: The patient's A1c came back at 6.2. I have discussed this with his mom discussed the need for diet modification. She tells me that just in the last week and a half they have started having meals brought into the house and been significantly watching their portions. She states that in this time, he has lost 12 pounds. 4. Abdominal wall anasarca: CT of the abdomen and pelvis shows some diffuse subcutaneous edema that they describe as anasarca, and he does have pitting edema of his abdominal wall. Echocardiogram reveals normal EF and no evidence of RHF or diastolic dysfunction. 5. Enlarged left liver lobe: This is noted on CT of abdomen and pelvis. LFTs and lipase are within normal limits. He will need continued follow-up of this with his PCP. 6. Traumatic dave attempt on night of 02/13 with resultant hematuria, clots, and acute blood loss anemia: Now has a 16F caude in place and it is draining clear urine with no evidence of hematuria. Despite our best efforts, we were not able to complete this as a sterile procedure (please see note from 02/14). For this reason, I have continued him on broad antibiotics. Continue to monitor. 7. ALHAJI: Secondary to clots from traumatic dave insertion causing transient retention. I had hoped this would improve with the catheter is in place, but it has not, so we will start gentle IVF. 8. Nutrition/Bowel habits: Continue bowel regimen to aid patient in having a BM. The mom is concerned that he does not like the pureed diet. I have explained to her that he is at risk of aspiration if he eats regular food. She states that he seems to like the mashed potatoes and applesauce, as well as jello and yogurt. I have asked nursing to attempt to get these items for him if they meet the [employer] recommendations for consistency. DVT prophylaxis: SCDs Dispo: appreciate the help of PT, OT, and case management, as this patient is requiring more care at home than his family is able to supply VS, I&O, 24H, Fishbone Vital Signs/I&O Vital Signs Date Time Temp Pulse Resp B/P (MAP) Pulse Ox O2 Delivery O2 Flow Rate FiO2 02/16/17 12:00 99.9 117 22 124/68 (86) 97 High Flow Cannula 30.0 I&O- Last 24 Hours up to 6 AM 02/16/17 06:00 Intake Total 1170 ml Output Total 1450 ml Balance -280 ml Laboratory Data 24H LABS Laboratory Tests 2 02/16/17 04:54: Anion Gap 6L, Glomerular Filtration Rate 57.6L, Blood Urea Nitrogen 14, Creatinine 1.53H, Sodium Level 140, Potassium Level 4.5, Chloride Level 99, Carbon Dioxide Level 35H, Calcium Level 8.7, Aspartate Amino Transf (AST/SGOT) 19, Alanine Aminotransferase (ALT/SGPT) 23, Alkaline Phosphatase 65, Total Bilirubin 1.6H, Total Protein 7.2, Albumin 2.9L, Magnesium Level 2.5H, Albumin/ Globulin Ratio 0.67L 02/16/17 10:26: Blood Gas Bicarbonate Standard 30.8, Venous Blood pH 7.327L, Venous Blood Partial Pressure CO2 69.6H, Venous Blood Partial Pressure O2 56.2H, Venous Blood Total Carbon Dioxide 37.8H, Venous Blood HCO3 35.6H, Venous Blood Oxygen Saturation 87.8H, Venous Blood Base Excess 7.2H, Vancomycin Level Trough 26.8*H CBC/BMP Laboratory Tests 02/15/17 19:05 02/16/17 04:54 Red Blood Count 4.03 L, Mean Corpuscular Volume 103.9 H, Mean Corpuscular Hemoglobin 32.4, Mean Corpuscular Hemoglobin Concent 31.2 L, Red Cell Distribution Width 14.8 H, Calcium Level 8.7, Aspartate Amino Transf (AST/SGOT) 19, Alanine Aminotransferase (ALT/SGPT) 23, Alkaline Phosphatase 65, Total Bilirubin 1.6 H, Total Protein 7.2, Albumin 2.9 L Microbiology Microbiology 02/12/17 Blood Culture - Preliminary, Resulted No Growth after 72 hours. All specime... 02/12/17 Blood Culture - Preliminary, Resulted No Growth after 72 hours. All specime... 02/14/17 Urine Culture - Final, Complete CHASTITY BAXTER Feb 16, 2017 15:37
[2017-02-16 16:51] LABS: VENOUS O2 SATURATION 72.2 % (60.0-80.0); VENOUS PARTIAL PRESSURE CO2 67.8 mmHg (38.0-50.0); VENOUS PARTIAL PRESSURE O2 41.9 mmHg (30.0-50.0); VENOUS STANDARD HCO3 28.3 MEQ/L; VENOUS TOTAL CO2 35.5 MEQ/L (24.0-28.0)
--- NOTE | 2017-02-16 18:42 | PHACANCOPD ---
PHARMACY VANCOMYCIN DOSING Pt Demographics Demographics Patient Age:27 , Weight:155.100 , Gender: male Adjusted Body Weight Date: 02/12/17, Adjusted Body Weight: Kg Vancomycin Vancomycin indication: PNEUMONIA/UTI Vancomycin Target Ranges: 15-20 mcg/ml Vancomycin Load Y/N: Yes Load Dose Date Time Vancomycin Load Dose: 2G Date: 02/12/17 Time: 1800 Vancomycin Dose Date: 02/12/17. Current Vancomycin Dose: [1G IV Q8H] Intermittent Dosing?: No Labs Micro Microbiology 02/12/17 Blood Culture - Preliminary, Resulted No Growth after 72 hours. All specime... 02/12/17 Blood Culture - Preliminary, Resulted No Growth after 72 hours. All specime... 02/16/17 Respiratory Virus Panel (PCR) ([facility]), Received Pending 02/14/17 Urine Culture - Final, Complete Creatinine Clearance Date:02/12/17. Creatinine Clearance: [79.8]. Assessment and Plan Maintaining Current Dose?: No Reason for dose change: Trough too high Pharmacist Note Pharmacist Note 02/16/17: Trough today resulted at 26.8mcg/ml. We will hold today's doses of vancomycin and schedule a trough level to be drawn tomorrow at 1000. We will follow-up on tomorrow's level and resume dosing with an adjusted regimen if appropriate at that time. Date: 02/12/17. Pharmacist note: Pt. is a 27 year old male with down syndrome who was brought to the ER by his mother with symptoms of abdominal pain. During his visit it was discovered that he may have pneumonia. Pt. has no signs or symptoms of infection. Pt has no history of vanco use or MRSA at our facility. Pt will be started with Vanco 2G loading dose followed by 1G q8h@1900. A trough has been scheduled for tomorrow at 1800 just before the 4th dose. We will continue to monitor and adjust dose as needed. EFRA MURPHY PHARMACY Feb 16, 2017 18:42
--- NOTE | 2017-02-16 21:45 | CR ---
DATE OF CONSULTATION: 02/16/2017 CHIEF COMPLAINT: Asked by Dr. Lloyd to evaluate Mr. Gonzalez for hypoxemia. HISTORY OF PRESENT ILLNESS: Mr. Gonzalez is a 27-year-old white male with Down syndrome with significant mental impairment, who was brought to the emergency room by his mother on the morning of 02/12/2017, because of concern of abdominal discomfort. Per the admission note, there was no apparent nausea, vomiting, diarrhea, constipation, fevers or chills. He did not eat that morning. No coughing or rhinorrhea. No history of him coughing when eating or history of dysphagia. When he arrived in the emergency department, he was noted to have a saturation of 85% on room air and required six liters high-flow cannula to bring his saturations to 96%. He had to be sedated for a chest CT scan done, which was felt to show interstitial and alveolar air space disease with some underlying patchy atelectasis or pneumonitis. He also had an abdominal CT scan done which showed anasarca and enlarged liver and a small amount of ascites. It was thought that he had community-acquired pneumonia, possibly aspiration pneumonia, and he was admitted to the hospital. He was placed on vancomycin, Levaquin and Zosyn with the latter being prescribed for possible aspiration. He had an echocardiogram done which did not show any significant abnormality but was a technically difficult study. His ejection fraction (EF) was estimated at 65%. Over the course of his admission, he has had increasing oxygen needs. His oxygen requirements have gone from six liters of high flow on admission to 30 liters high flow. It is for his profound hypoxemia that pulmonary was consulted. On reviewing the chart, it is difficult to tell from his intake and output whether or not there has been significant change since his admission. His weight is listed as only 0.5 kg heavier than it was on admission. His white blood cell (WBC) count on admission was 9.1, and is 9.4 today. His chest x-ray today was not likely markedly different than he was on admission (chest CT scan versus chest x-ray). The admission arterial blood gas (ABG) which showed acute and chronic hypercapnic respiratory failure was done when sedated. He was afebrile on admission, with the only abnormal temperature he has had being 100.8 this morning. It is difficult much further history as he is essentially nonverbal. I did speak with his mother who stated that he does not typically walk. When he sleeps at night, he typically sleeps on three pillows, but she describes them as flat pillows. He was last out of the house approximately a week ago to attend a relative's birthday alliance party. She does not believe he was around any ill contacts. He has not been seen by a medical provider in quite some time, and his mother typically will bring him to the emergency department when she thinks he is ill. She reports that he is on a waiting list to get associated with a clinic. He has a history of sleep apnea and was prescribed continuous positive airway pressure (CPAP) back in 2006, and she states he is compliant, but in reports from respiratory therapy, the mask was nonfunctional that she brought in as was the unit, so it is doubtful that he truly has been wearing it. He has been unable to tolerate CPAP in the hospital. PAST MEDICAL HISTORY: 1. Down syndrome. a. Status post atrioventricular defect repair at 3 months of age. 3. Status post tonsillectomy and adenoidectomy (T and A). 4. Per chart, history of asthma as a child. 5. History of seizures as a child 15 years ago. 6. Morbid obesity with a BMI of 64.4. 7. Obstructive sleep apnea (HUNTER). a. I do not know his weight at the time of diagnosis. Titration from 06/18/2007, showed CPAP at 11 cm of water pressure to be sufficient. b. Diagnostic study 07/07/2007, showed at least moderate obstructive sleep apnea with an AHI of 26.3 and oxygen saturations decreasing into the 80s. ALLERGIES: CEPHALOSPORINS. MEDICATIONS (in the hospital): - DuoNeb every six hours, every two hours as needed - Colace 100 mg by mouth twice a day - milk of magnesia as needed - normal saline at 75 mL per hour - MiraLAX one packet by mouth daily - Nystatin powder as needed - Levaquin 750 mg intravenous (IV) every 24 - Zosyn 3.375 grams every 24 - vancomycin 1 gram every 12 (on hold) MEDICATIONS (outpatient): -None SOCIAL HISTORY: Mr. Gonzalez lives with is mother who is his legal guardian. No alcohol or tobacco usage. No recent significant travel. According to his mother, he is not out of the home very often. FAMILY HISTORY: His mother has hypertension, dyslipidemia. His father of cancer. He has 13 siblings who are reportedly alive and well. REVIEW OF SYSTEMS: He is unable to participate in the history. What is known is contained within the history of present illness (HPI). PHYSICAL EXAMINATION: GENERAL: Mr. Gonzalez is sitting in bed and does not appear in any significant distress. He has his eyes closed and intermittently may follow request of his mother. He cannot lay flat. VITAL SIGNS: Temperature 99.1, pulse 111, respiratory rate 22, blood pressure 125/52 with a mean arterial pressure (MAP) of 76, SpO2 of 86% on high-flow cannula of 30. HEENT: Anicteric. Pupils equal, round, and reactive to light, Down's facies. Oropharynx: Poor dentition, large tongue, oropharynx not further examined. NECK: Supple without thyromegaly or masses. Trachea is midline. Unable to assess jugular venous pulse (JVP). LYMPHATIC: Without cervical or supraclavicular lymphadenopathy. LUNGS: Symmetric excursion, fair air entry. No wheeze, rhonchi or crackle appreciated on tidal excursion. Normal I to E. No accessory muscle use or retractions. CARDIOVASCULAR: Tachycardic, regular rhythm. Normal S1, S2. Unable to appreciate whether or not there was murmur, rub, or gallop because of body habitus and position. ABDOMEN: Protuberant, indurated skin, positive bowel sounds, unable to appreciate if there is any organomegaly. EXTREMITIES: Warm and well perfused. Generally without clubbing or cyanosis, trace to 1+ pretibial edema bilaterally, palpable pedal pulses bilaterally. LABORATORY DATA: CBC from this morning shows a hemoglobin of 13.0, hematocrit of 42, platelet count 154,000, white blood cell count 9.4. Chemistry showed a sodium 145, potassium 4.5, chloride 99, bicarbonate 35, anion gap 6, BUN 14, creatinine 1.5, glucose 108, calcium 8.7, magnesium 2.5, total bilirubin 1.6, AST 19, ALT 23, alkaline phosphatase 65, total protein 7.2, albumin 2.9. BNP from 02/14 was 105. Vancomycin trough is elevated at 26.8. Urinalysis from 02/14 was cloudy, pH of 1.015, protein 1+, 3+ blood, negative for leukocyte esterase. 18 WBCs in the setting of too numerous to count RBCs. Arterial blood gas from 02/12 (when sedated) was 7.3/70/63, with a measured saturation 90% and a base excess of 4.5. Venous blood gas (VBG) from this morning was 7.33/70/56, measured saturation of 88%. This was on 30 liters by high-flow oxygen. I reviewed his chest CT scan, as well as the report from 02/12/2017. That CT scan showed normal-appearing cardiac silhouette and pulmonary vascular shadow. No obvious mediastinal or hilar adenopathy. There was respiratory motion during this study. There was bilateral patchy ground-glass opacity. There was fibrotic change in the right apex. No consolidated regions. Small bilateral pleural effusions. I reviewed his chest x-ray this morning which was a single view. Likely normal-appearing cardiac silhouetted and pulmonary vascular shadows. There remain interstitial and alveolar opacities, likely unchanged from admission. No consolidated regions. Both hemidiaphragms could be seen. IMPRESSION: 1. Acute hypoxemic respiratory failure. It is very difficult to tell what the cause of this abnormality is, given the limited physical exam and limited radiologic examination as well. The most likely differential would be infectious/inflammatory versus pulmonary edema. It seems unlikely that this is a thromboembolic event, given his severe hypoxemia which has progressed and remaining normotensive. If this is an inflammatory / infectious process, the most likely reason would be viral versus atypical infection. While aspiration could be considered, there is not a consolidated region, and this would not explain diffuse findings on his chest x-ray and CT scan. Theoretically it is possible there could be a small component related to aspiration and superimposed pulmonary edema. No history to suspect a pneumonitis from inhalation, and again, this would not be expected to worsen in the hospital. Given his high venous saturation, cardiac shunt has to be high on the differential 2. Chronic respiratory failure. He has sleep apnea which I suspect is undertreated if it is treated at all. His sleep studies are old, and his equipment is old, and I am suspicious that he is likely not wearing it at home, and even if he were, that it would be beneficial. I do not know the weight at the time of his diagnosis, but I suspect that it is considerably increased now, making it likely that he may be undertreated. He also may have a component related to obesity hypoventilation as we do not know what his oxygen saturations were when he was well as an outpatient. 3. Anasarca. I do not have a good explanation for his anasarca. He does not appear malnourished (albumin 2.9). Differential would have to include cor pulmonale, diastolic dysfunction, renal origin (glomerular filtration rate (GFR) is not that decreased), or other. 4. Orthopnea. 5. Obstructive sleep apnea. Again, I suspect this undertreated if treated at all. 6. Down syndrome with significant mental impairment. RECOMMENDATION: 1. If this is infectious in origin, then it is most likely atypical and would make sure he is on good coverage for that. Levaquin should cover that, as would a macrolide. 2. It is probably reasonable that he be kept on antibiotics for aspiration pneumonia, although I do not feel that aspiration pneumonia is a big difficulty. 3. I would be judicious with fluids. While his echocardiogram showed good systolic function, they could not make a firm comment on diastolic function, and echoes can be very poor in assessing pulmonary hypertension. 4. I would check a viral panel. He did have contact with multiple individuals approximately a week ago though viral pneumonia seems very unlikely (no fever or cough) 5. I feel it is reasonable to temporarily decrease the saturation expectation and accept saturations 82% to 92%. Thank you for this consult. Will continue to follow with you. ADDENDUM: I spoke with our pensions retirement plan specialist re: possibility of failure of the AV canal repair (it has been almost 30 years). He did not see a clear association but suggested I contact pediatric cardiology. I will repeat the VBG and if the venous saturation remains high [facility], otherwise will likely contact them in the morning depending on how he does overnight. KIMBERLY
[2017-02-17] VITALS (23 sets, daily range): BP systolic 107–139; BP diastolic 63–79; O2SAT 74–92
[2017-02-17] MEDS: NS 1,000 ML IV SCH ×3 (00:07→23:36)
[2017-02-17] MEDS: IPRATROPIUM 0.5MG/ALBUTEROL 2.5MG INH SOL UD 3ML (DUONEB)(J7620) NEB SCH ×4 (02:19→20:42)
[2017-02-17] MEDS: SODIUM CHLORIDE 0.9% INJ 10 ML SYR IV SCH ×2 (04:41→17:46)
[2017-02-17] MEDS: MEROPENEM INJ 1 GM in D5W MINI-BAG PLUS 100 ML IV SCH ×3 (04:41→20:14)
[2017-02-17 05:08] LABS: MEAN CORPUSCULAR HEMOGLOBIN 32.3 pg (27.0-33.0); MEAN CORPUSCULAR HGB CONC 30.9 g/dl (32.0-36.5); MEAN CORPUSCULAR VOLUME 104.4 fl (80.0-96.0); RED CELL DISTRIBUTION WIDTH 14.7 % (11.5-14.5); WHITE BLOOD COUNT 9.2 K/mm3 (4.0-10.0)
[2017-02-17 05:28] LABS: ALBUMIN 2.7 GM/DL (3.2-5.2); ALBUMIN/GLOBULIN RATIO 0.57 (1.00-1.93); BILIRUBIN,TOTAL 1.3 MG/DL (0.2-1.0); CALCIUM LEVEL 8.9 MG/DL (8.5-10.1); CREATININE FOR GFR 1.72 MG/DL (0.70-1.30); GLOMERULAR FILTRATION RATE 50.3 (>60); MAGNESIUM LEVEL 2.3 MG/DL (1.8-2.4); POTASSIUM SERUM 4.1 MEQ/L (3.5-5.1); TOTAL PROTEIN 7.4 GM/DL (6.4-8.2)
[2017-02-17] MEDS: DOCUSATE SODIUM 100 MG CAP PO SCH ×2 (09:06→20:14)
[2017-02-17] MEDS: NYSTATIN 100,000 UNITS/GM TOPICAL PWD 15 GM TOP SCH (09:06)
[2017-02-17] MEDS: MIRALAX *UNIT DOSE* 17GM PACKET PO SCH (09:06)
[2017-02-17 11:27] LABS: VENOUS BASE EXCESS 6.4 (-2.0-2.0); VENOUS O2 SATURATION 74.3 % (60.0-80.0); VENOUS PARTIAL PRESSURE CO2 72.7 mmHg (38.0-50.0); VENOUS PARTIAL PRESSURE O2 41.5 mmHg (30.0-50.0); VENOUS STANDARD HCO3 29.7 MEQ/L; VENOUS TOTAL CO2 37.5 MEQ/L (24.0-28.0)
[2017-02-17] MEDS: ACETAMINOPHEN TAB 650MG DOSE (2X325MG) PO PRN (12:32)
--- NOTE | 2017-02-17 14:44 | PHACANCOPD ---
PHARMACY VANCOMYCIN DOSING Pt Demographics Demographics Patient Age:27 , Weight:156.000 , Gender: male Adjusted Body Weight Date: 02/12/17, Adjusted Body Weight: Kg Events Past 24 Hours Events Past 24 Hours: YES: Change in CrCl, Fever, NO: Dialysis, Diuretic Therapy, Elevation in WBC, Pending Diagnostics, Pending Procedures, Other Vancomycin Vancomycin indication: PNEUMONIA/UTI Vancomycin Target Ranges: 15-20 mcg/ml Vancomycin Load Y/N: Yes Load Dose Date Time Vancomycin Load Dose: 2G Date: 02/12/17 Time: 1800 Vancomycin Dose Date: 02/17/17. Current Vancomycin Dose: [1G IV Q18H] Date: 02/12/17. Current Vancomycin Dose: [1G IV Q8H] Intermittent Dosing?: No Labs Labs Item Value Date Time White Blood Count 9.4 K/mm3 02/16/17 0454 White Blood Count 9.2 K/mm3 02/17/17 0458 Random Vancomycin Level 12.2 UG/ML 02/17/17 1337 Vancomycin Level Trough 26.8 UG/ML *H 02/16/17 1026 Creatinine 1.53 MG/DL H 02/16/17 0454 Creatinine 1.72 MG/DL H 02/17/17 0458 Vital Signs Label Value Date Time Patient Temperature 101.6 degrees F 02/17/17 1200 Temperature Source Core 02/17/17 1200 Patient Temperature 99.7 degrees F 02/17/17 0745 Temperature Source Temporal 02/17/17 0745 Micro Microbiology 02/17/17 Blood Culture, Received Pending 02/17/17 Blood Culture, Received Pending 02/12/17 Blood Culture - Preliminary, Resulted No Growth after 72 hours. All specime... 02/12/17 Blood Culture - Preliminary, Resulted No Growth after 72 hours. All specime... 02/16/17 Respiratory Virus Panel (PCR) ([facility]) - Final, Complete 02/17/17 Urine Culture, Received Pending 02/14/17 Urine Culture - Final, Complete Creatinine Clearance Date:02/12/17. Creatinine Clearance: [79.8]. Assessment and Plan Maintaining Current Dose?: No Reason for dose change: Trough too high Pharmacist Note Pharmacist Note 02/17: Trough was never drawn this morning so a random was scheduled for this afternoon. It was resulted as 12.2. His Vancomycin was continued as Vancomycin 1gm q18h for now. The patient has started experiencing fevers and his Scr has increased from 1.72 from 1.53 yesterday. We will monitor him closely, as he accumulates quickly and make any adjustments necessary. 02/16/17: Trough today resulted at 26.8mcg/ml. We will hold today's doses of vancomycin and schedule a trough level to be drawn tomorrow at 1000. We will follow-up on tomorrow's level and resume dosing with an adjusted regimen if appropriate at that time. Date: 02/12/17. Pharmacist note: Pt. is a 27 year old male with down syndrome who was brought to the ER by his mother with symptoms of abdominal pain. During his visit it was discovered that he may have pneumonia. Pt. has no signs or symptoms of infection. Pt has no history of vanco use or MRSA at our facility. Pt will be started with Vanco 2G loading dose followed by 1G q8h@1900. A trough has been scheduled for tomorrow at 1800 just before the 4th dose. We will continue to monitor and adjust dose as needed. MAXINE CABALLERO PHARMACY Feb 17, 2017 14:44
[2017-02-17] MEDS: VANCOMYCIN HCL 1,000 MG, VIAL MATE ADAPTER 1 EACH in D5W 250 ML IV SCH (15:59)
--- NOTE | 2017-02-17 18:07 | IPNPDOC ---
Date Seen The patient was seen on 02/17/17. Progress Note Hospitalist Progress Note Subjective: per mom, patient has had a better day; he is eating more and had 2 BMs; she also says he slept some last night Objective: Physical Exam: Vitals: Vital Sign - Last 24 Hours 02/16/17 02/16/17 02/16/17 02/16/17 19:00 20:00 20:00 20:13 Temp 100.6 Pulse 117 Resp 26 B/P (MAP) 125/62 (83) Pulse Ox 87 88 87 O2 Delivery Nasal Cannula High Flow Cannula Nasal Cannula Nasal Cannula O2 Flow Rate 25.0 25.0 25.0 02/16/17 02/16/17 02/16/17 02/16/17 20:29 21:00 22:00 23:00 Pulse Ox 87 90 92 O2 Delivery Nasal Cannula Nasal Cannula Nasal Cannula Nasal Cannula O2 Flow Rate 30.0 25.0 25.0 25.0 02/16/17 02/17/17 02/17/17 02/17/17 23:51 00:00 00:00 01:00 Temp 100.4 Pulse 109 Resp 22 B/P (MAP) 115/63 (80) Pulse Ox 90 91 89 O2 Delivery Nasal Cannula Nasal Cannula High Flow Cannula Nasal Cannula O2 Flow Rate 25.0 25.0 25.0 02/17/17 02/17/17 02/17/17 02/17/17 02:00 03:00 04:00 04:00 Temp 99.4 Pulse 110 Resp 20 B/P (MAP) 117/66 (83) Pulse Ox 90 92 91 91 O2 Delivery Nasal Cannula Nasal Cannula Nasal Cannula High Flow Cannula O2 Flow Rate 25.0 25.0 25.0 02/17/17 02/17/17 02/17/17 02/17/17 04:45 05:00 06:00 07:45 Temp 99.7 Pulse 112 Resp 24 B/P (MAP) 107/66 (80) Pulse Ox 89 87 89 O2 Delivery Nasal Cannula Nasal Cannula Nasal Cannula High Flow Cannula O2 Flow Rate 25.0 25.0 25.0 25.0 02/17/17 02/17/17 02/17/17 02/17/17 08:00 08:00 08:45 09:00 Pulse Ox 88 91 87 O2 Delivery Nasal Cannula Nasal Cannula Nasal Cannula Nasal Cannula O2 Flow Rate 25.0 20.0 25.0 25.0 02/17/17 02/17/17 02/17/17 02/17/17 09:19 09:30 10:00 11:00 Pulse Ox 87 79 84 O2 Delivery Nasal Cannula Nasal Cannula Nasal Cannula Nasal Cannula O2 Flow Rate 17.0 20.0 20.0 20.0 02/17/17 02/17/17 02/17/17 02/17/17 11:55 12:00 12:00 13:00 Temp 101.6 Pulse 118 Resp 21 B/P (MAP) 126/66 (86) Pulse Ox 77 61 84 O2 Delivery Nasal Cannula Nasal Cannula High Flow Cannula Nasal Cannula O2 Flow Rate 25.0 25.0 25.0 25.0 02/17/17 02/17/17 02/17/17 02/17/17 14:00 15:00 15:23 16:00 Pulse Ox 80 76 78 74 O2 Delivery Nasal Cannula Nasal Cannula Nasal Cannula Nasal Cannula O2 Flow Rate 25.0 25.0 25.0 25.0 02/17/17 02/17/17 16:00 17:00 Temp 99.8 Pulse 130 Resp 22 B/P (MAP) 131/79 (96) Pulse Ox 75 86 O2 Delivery High Flow Cannula Nasal Cannula O2 Flow Rate 25.0 25.0 General: Awake, alert,mild distress HEENT: Normocephalic, atraumatic, extraocular movements intact CV: Regular rate and rhythm Lungs: Clear to auscultation bilaterally but working hard to breathe Abd: Obese, soft, nontender, pitting edema of the anterior abdominal wall Extremities: Bilateral knees are covered in hyperkeratotic, hyperpigmented plaques, intact pedal pulses, no edema appreciated Neuro: Alert, minimally verbal Labs and Imaging: Laboratory Tests 02/17/17 04:58 Red Blood Count 3.83 L, Mean Corpuscular Volume 104.4 H, Mean Corpuscular Hemoglobin 32.3, Mean Corpuscular Hemoglobin Concent 30.9 L, Red Cell Distribution Width 14.7 H, Calcium Level 8.9, Aspartate Amino Transf (AST/SGOT) 16, Alanine Aminotransferase (ALT/SGPT) 25, Alkaline Phosphatase 69, Total Bilirubin 1.3 H, Total Protein 7.4, Albumin 2.7 L Assessment and Plan: 27-year-old male with Down syndrome, history of atrioventricular defect status post surgical repair as an , HUNTER (questionable compliance with CPAP), morbid obesity, psoriasis, one episode of seizure as a child, childhood asthma who presented to the emergency department for abdominal pain. He was initially found to have pneumonia on chest imaging. The night of 02/13 he experienced a traumatic dave placement attempt. He continues to be extremely hypoxic and now is febrile despite broad spectrum abx. 1. Pneumonia: It is unclear if this is community-acquired or aspiration. Initial CT showed interstitial and alveolar airspace opacities. Blood cultures negative. The patient has had a normal white count but is requiring 25-30 L comfort flow of oxygen to keep his sats only in s. I suspect that his underlying HUNTER and probable obesity hypoventilation syndrome is exacerbating this. Speech therapy evaluation has cleared him for a pured diet with nectar thick liquids. Today he had a fever to 101.6. He has been on vanc/merrem since yesterday (prior to that was on vanc/levaquin/zosyn). Continue DuoNeb's. Given the patient's high O2 requirements, I wanted to get a CT chest 2 days ago but the patient was unable to tolerate laying flat. I attempted a 2v CXR yesterday, but he was not able to keep his sats up long enough to go downstairs , so we had no options but to do a portable, which did not give much useful information. I also attempted to get an ABG, but RT reports that the patient was very combative when they tried to obtain this and they were worried they would strip his artery, so we opted for a VBG which could be drawn off the PICC. I have asked Dr. Duong of pulmonology for her help in managing this patient. She is suspicious about whether or not some of this represents failure of his AV defect repair. Unfortunately, we do not have ped cards, nor do we have interventional cards. Although we attempted an echo here, his body habitus precludes us from getting good information, and he may benefit from a cath that can accurately assess his cardiac function. We are seeking transfer to [facility] for these reasons. Additionally, he is having high fevers on broad abx (merrem and vanc) with negative cultures and we do not have ID services. Patient is also unable to tolerate V/Q scan or CTA to rule out PE, but Dr. Duong thinks PE is unlikely. 2. HUNTER: Continue home CPAP, although the patient refuses to wear it. Per my discussion with RT, the CPAP machine that the family brought in was broken, although the mom insists that the patient uses it at home. RT has provided him with one of our CPAPs to use, but he struggles to tolerate the mask, secondary to impaired cognition. I have stressed with the mom the absolute importance of helping us encourage him to wear it, as he is not going to get off of the oxygen or recover from the PNA if he does not wear the CPAP. 3. Prediabetes: The patient's A1c came back at 6.2. I have discussed this with his mom discussed the need for diet modification. She tells me that just in the last week and a half they have started having meals brought into the house and been significantly watching their portions. She states that in this time, he has lost 12 pounds. 4. Abdominal wall anasarca: CT of the abdomen and pelvis shows some diffuse subcutaneous edema that they describe as anasarca, and he does have pitting edema of his abdominal wall. Echocardiogram reveals normal EF and no evidence of RHF or diastolic dysfunction, however, this is limited by his body habitus. May benefit from heart cath to further assess cardiac function. 5. Enlarged left liver lobe: This is noted on CT of abdomen and pelvis. LFTs and lipase are within normal limits. He will need continued follow-up of this with his PCP. 6. Traumatic dave attempt on night of 02/13 with resultant hematuria, clots, and acute blood loss anemia: Now has a 16F caude in place and it is draining clear urine with no evidence of hematuria. Despite our best efforts, we were not able to complete this as a sterile procedure (please see note from 02/14). For this reason, I have continued him on broad antibiotics. Continue to monitor. 7. ALHAJI: Secondary to clots from traumatic dave insertion causing transient retention. I had hoped this would improve with the catheter is in place, but it has not. Continue IVF. 8. Nutrition/Bowel habits: Continue bowel regimen to aid patient in having a BM. The mom is concerned that he does not like the pureed diet. I have explained to her that he is at risk of aspiration if he eats regular food. She states that he seems to like the mashed potatoes and applesauce, as well as jello and yogurt. I have asked nursing to attempt to get these items for him if they meet the TRAFFIC CONTROL SUPERVISOR recommendations for consistency. DVT prophylaxis: SCDs Dispo: pending transfer to [facility] for ped cards/interventional cards and ID VS, I&O, 24H, Fishbone Vital Signs/I&O Vital Signs Date Time Temp Pulse Resp B/P (MAP) Pulse Ox O2 Delivery O2 Flow Rate FiO2 02/17/17 17:00 86 Nasal Cannula 25.0 02/17/17 16:00 99.8 130 22 131/79 (96) I&O- Last 24 Hours up to 6 AM 02/17/17 06:00 Intake Total 2805 ml Output Total 1575 ml Balance 1230 ml Laboratory Data 24H LABS Laboratory Tests 2 02/17/17 04:58: Anion Gap 2L, Glomerular Filtration Rate 50.3L, Blood Urea Nitrogen 14, Creatinine 1.72H, Sodium Level 140, Potassium Level 4.1, Chloride Level 102, Carbon Dioxide Level 36H, Calcium Level 8.9, Aspartate Amino Transf (AST/SGOT) 16, Alanine Aminotransferase (ALT/SGPT) 25, Alkaline Phosphatase 69, Total Bilirubin 1.3H, Total Protein 7.4, Albumin 2.7L, Magnesium Level 2.3, Albumin/ Globulin Ratio 0.57L 02/17/17 11:20: Blood Gas Bicarbonate Standard 29.7, Venous Blood pH 7.304L, Venous Blood Partial Pressure CO2 72.7H, Venous Blood Partial Pressure O2 41.5, Venous Blood Total Carbon Dioxide 37.5H, Venous Blood HCO3 35.3H, Venous Blood Oxygen Saturation 74.3, Venous Blood Base Excess 6.4H 02/17/17 13:37: Random Vancomycin Level 12.2 CBC/BMP Laboratory Tests 02/17/17 04:58 Red Blood Count 3.83 L, Mean Corpuscular Volume 104.4 H, Mean Corpuscular Hemoglobin 32.3, Mean Corpuscular Hemoglobin Concent 30.9 L, Red Cell Distribution Width 14.7 H, Calcium Level 8.9, Aspartate Amino Transf (AST/SGOT) 16, Alanine Aminotransferase (ALT/SGPT) 25, Alkaline Phosphatase 69, Total Bilirubin 1.3 H, Total Protein 7.4, Albumin 2.7 L Microbiology Microbiology 8/7/17 Blood Culture, Received Pending 02/17/17 Blood Culture, Received Pending 02/12/17 Blood Culture - Final, Complete NO GROWTH AFTER 5 DAYS 02/12/17 Blood Culture - Final, Complete NO GROWTH AFTER 5 DAYS 02/16/17 Respiratory Virus Panel (PCR) (TRISHA) - Final, Complete 02/17/17 Urine Culture, Received Pending 02/14/17 Urine Culture - Final, Complete CHASTITY BAXTER Feb 17, 2017 18:07
[2017-02-17] MEDS ORDERED: NYST10PW TOP (19:25)
[2017-02-17] MEDS ORDERED: VANC1VLAD INJ (19:25)
[2017-02-17] MEDS ORDERED: [UNRECOGNIZED DRUG - CODE] IV (19:25)
[2017-02-17] MEDS ORDERED: IPRASOL4 NEB ×2 (19:25)
--- NOTE | 2017-02-17 19:26 | DS.PDOC ---
Discharge Summary General Date of Admission Feb 12, 2017 at 15:49 Date of Discharge see note from Dr. Early Discharge Summary This note was originally opened when he was pending transfer to [facility]. He did not end up being transferred for approximately 5 more days secondary to lack of bed availability. By that time, he had been under the care of Dr. Early for [address] Early has completed a very thorough discharge summary that accurately reflects the patient's stay and his ultimate disposition. Discharge Medications Scheduled Albuterol/Ipratropium (Ipratropium Hibbs/Albut 0.5-2.5 (3) mg/3Ml) 1 Ana Ana, 3 ML NEB RQ6H Azithromycin (Azithromycin) 500 Mg Tab, 500 MG PO DAILY Furosemide (Furosemide) 10 Mg/Ml Inj, 40 MG IV BID Nystatin (Nystop Powder) 1 Dose/15 Gm Powd, 0 DOSE TOP DAILY apply to groin and abdominal folds Scheduled PRN Albuterol/Ipratropium (Ipratropium Hibbs/Albut 0.5-2.5 (3) mg/3Ml) 1 Ana Ana, 3 ML NEB Q2HP PRN for SOB/WHEEZING Allergies Coded Allergies: Cephalosporins (Verified Allergy, Intermediate, HIVES & RASH, 10/19/12) CHASTITY BAXTER Feb 17, 2017 19:26
[2017-02-18] VITALS (7 sets, daily range): BP systolic 116–134; BP diastolic 69–92; O2SAT 91
[2017-02-18] MEDS: IPRATROPIUM 0.5MG/ALBUTEROL 2.5MG INH SOL UD 3ML (DUONEB)(J7620) NEB SCH ×4 (01:54→20:58)
[2017-02-18] MEDS: SODIUM CHLORIDE 0.9% INJ 10 ML SYR IV SCH ×2 (05:20→17:29)
[2017-02-18] MEDS: MEROPENEM INJ 1 GM in D5W MINI-BAG PLUS 100 ML IV SCH ×3 (05:22→22:19)
[2017-02-18 05:39] LABS: MEAN CORPUSCULAR HEMOGLOBIN 32.3 pg (27.0-33.0); MEAN CORPUSCULAR HGB CONC 30.7 g/dl (32.0-36.5); MEAN CORPUSCULAR VOLUME 105.2 fl (80.0-96.0); RED CELL DISTRIBUTION WIDTH 14.7 % (11.5-14.5)
[2017-02-18 06:02] LABS: ALBUMIN 2.8 GM/DL (3.2-5.2); ALBUMIN/GLOBULIN RATIO 0.68 (1.00-1.93); BILIRUBIN,TOTAL 0.9 MG/DL (0.2-1.0); CALCIUM LEVEL 8.7 MG/DL (8.5-10.1); CREATININE FOR GFR 1.53 MG/DL (0.70-1.30); GLOMERULAR FILTRATION RATE 57.6 (>60); MAGNESIUM LEVEL 2.4 MG/DL (1.8-2.4); POTASSIUM SERUM 4.4 MEQ/L (3.5-5.1); TOTAL PROTEIN 6.9 GM/DL (6.4-8.2)
[2017-02-18] MEDS: DOCUSATE SODIUM 100 MG CAP PO SCH ×2 (08:55→21:00)
[2017-02-18] MEDS: VANCOMYCIN HCL 1,000 MG, VIAL MATE ADAPTER 1 EACH in D5W 250 ML IV SCH (08:55)
[2017-02-18] MEDS: MIRALAX *UNIT DOSE* 17GM PACKET PO SCH (08:55)
[2017-02-18] MEDS: NYSTATIN 100,000 UNITS/GM TOPICAL PWD 15 GM TOP SCH (09:00)
[2017-02-18] MEDS ORDERED: FUROSEMIDE 40 MG/4 ML VIAL (J1940) IV SCH (11:00)
[2017-02-18] MEDS: FUROSEMIDE 40 MG/4 ML VIAL (J1940) IV SCH ×2 (11:28→22:19)
--- NOTE | 2017-02-18 16:39 | IPNPDOC ---
Text Note Date of Service The patient was seen on 02/18/17. NOTE Subjective: The patient is nonverbal at baseline. Mother states that the patient looks more comfortable today. No acute changes overnight. Objective: Vitals: (see below) General: No acute distress, laying comfortably in bed. HEENT: Moist mucous membranes. Macroglossia. Airway patent. Neck: No JVD or lymphadenopathy Cardiac: Tachycardic. Regular Rate. No murmurs Pulm: Diminished breath sounds b/l. No wheezing, rhonchi Abd: NT/ND + BS. Chronic edematous changes. No cellulitis. Ext: 1-2 + pitting edema BLE. No cyanosis. Labs (see below) Images: CT abdomen and pelvis 02/12/17 Impression: 1. Diffuse subcutaneous edema and skin thickening anteriorly of the abdominal and pelvic wall suggesting anasarca or other cause for this edema. 2. There is no renal, ureteral or bladder stone nor hydronephrosis. 3. No small-bowel dilatation, colonic obstruction or acute inflammatory process. 4. Enlarged left lobe of the liver, but small amount of ascites and fluid tracking into the peroneal gutters on both sides. No intra-abdominal or pelvic adenopathy. Bilateral inguinal adenopathy up to 18 mm for the largest nodes in short axis. CT Chest 02/12/17 Impression: 1. With interstitial and alveolar airspace opacities suggesting acute and chronic process. Some underlying fibrosis with patchy atelectasis or pneumonitis may certainly be suspected. Heavier curvilinear fibrotic change in the right apex. 2. No gross cardiomegaly, pericardial thickening or effusion. No adenopathy. 3. Bones without acute finding. Small bilateral effusions. Assessment/Plan 1. Hypoxic respiratory failure- likely multifactorial. Questionable committee acquired pneumonia versus aspiration pneumonia. Patient also has underlying obstructive sleep apnea and likely not complaint with CPAP at home. In addition to this patient has obesity hypoventilation syndrome, and likely has diastolic heart failure given his presentation. It appears that the patient likely has acute on chronic diastolic heart failure at this point. He has gained approximately 25 kg from his baseline weight. The solutions executive cloud sales Dr. Duong as well as the blanket maker believed that the patient may have a concomitant's defect in his atrioventricular repair and recommend transfer to a tertiary center for pediatric cardiology evaluation as well as possible cardiac catheterization. In the meantime, we will start diuresing the patient. Discontinue IV fluids. Echocardiogram with limited views although no systolic heart failure noted. 2. Obstructive sleep apnea- patient's home machine has been broken. Respiratory therapist to write patient with CPAP. The patient continues to struggle to tolerate the mask given his impaired cognition. 3. Prediabetes- A1c 6.2. Diet controlled. 4. Abdominal wall anasarca- patient does have chronic skin changes on exam, and likely has diastolic dysfunction with p possible ortal congestion. We will start to cautiously diurese the patient. 5. Traumatic Engle with results of hematuria and clots/acute blood loss anemia. Please see note from 02/14. No bleeding at this time. 6. Acute kidney injury- avoid nephrotoxins. Start I/O. no hydronephrosis on CAT scan of the abdomen and pelvis. 7. Constipation- resolved. DVT prophylaxis- SCDs Awaiting transfer to [facility]. Awaiting for bed availability. VS,Fishbone, I+O VS, Fishbone, I+O Laboratory Tests 02/18/17 05:19 Red Blood Count 3.92 L, Mean Corpuscular Volume 105.2 H, Mean Corpuscular Hemoglobin 32.3, Mean Corpuscular Hemoglobin Concent 30.7 L, Red Cell Distribution Width 14.7 H, Calcium Level 8.7, Aspartate Amino Transf (AST/SGOT) 18, Alanine Aminotransferase (ALT/SGPT) 24, Alkaline Phosphatase 65, Total Bilirubin 0.9, Total Protein 6.9, Albumin 2.8 L Vital Signs Date Time Temp Pulse Resp B/P (MAP) Pulse Ox O2 Delivery O2 Flow Rate FiO2 02/18/17 12:00 98.0 110 24 126/76 (93) 91 High Flow Cannula 02/18/17 07:30 25.0 I&O- Last 24 Hours up to 6 AM 02/18/17 05:59 Intake Total 1515 ml Output Total 1235 ml Balance 280 ml BRIJESH BONNER MD Feb 18, 2017 16:39
[2017-02-19] VITALS (7 sets, daily range): BP systolic 117–146; BP diastolic 58–79
[2017-02-19] MEDS: IPRATROPIUM 0.5MG/ALBUTEROL 2.5MG INH SOL UD 3ML (DUONEB)(J7620) NEB SCH ×4 (01:54→19:54)
[2017-02-19] MEDS: VANCOMYCIN HCL 1,000 MG, VIAL MATE ADAPTER 1 EACH in D5W 250 ML IV SCH (04:22)
[2017-02-19] MEDS: MEROPENEM INJ 1 GM in D5W MINI-BAG PLUS 100 ML IV SCH (04:22)
[2017-02-19] MEDS: SODIUM CHLORIDE 0.9% INJ 10 ML SYR IV SCH ×2 (04:23→17:13)
[2017-02-19 04:46] LABS: MEAN CORPUSCULAR HEMOGLOBIN 32.1 pg (27.0-33.0); MEAN CORPUSCULAR HGB CONC 30.9 g/dl (32.0-36.5); MEAN CORPUSCULAR VOLUME 104.1 fl (80.0-96.0); RED CELL DISTRIBUTION WIDTH 14.8 % (11.5-14.5); WHITE BLOOD COUNT 9.6 K/mm3 (4.0-10.0)
[2017-02-19 04:53] LABS: ALBUMIN 2.9 GM/DL (3.2-5.2); ALBUMIN/GLOBULIN RATIO 0.69 (1.00-1.93); BILIRUBIN,TOTAL 0.8 MG/DL (0.2-1.0); CALCIUM LEVEL 8.3 MG/DL (8.5-10.1); CREATININE FOR GFR 1.5 MG/DL (0.70-1.30); GLOMERULAR FILTRATION RATE 58.9 (>60); MAGNESIUM LEVEL 2.2 MG/DL (1.8-2.4); TOTAL PROTEIN 7.1 GM/DL (6.4-8.2)
[2017-02-19] MEDS: NYSTATIN 100,000 UNITS/GM TOPICAL PWD 15 GM TOP SCH (09:00)
[2017-02-19] MEDS ORDERED: FUROSEMIDE 40 MG/4 ML VIAL (J1940) IV SCH (09:00)
[2017-02-19] MEDS: MIRALAX *UNIT DOSE* 17GM PACKET PO SCH (09:00)
[2017-02-19] MEDS: DOCUSATE SODIUM 100 MG CAP PO SCH ×2 (09:00→20:23)
[2017-02-19] MEDS: AZITHROMYCIN INJ 500 MG, VIAL MATE ADAPTER 1 EACH in D5W 250 ML IV SCH (10:08)
--- NOTE | 2017-02-19 14:41 | IPNPDOC ---
Text Note Date of Service The patient was seen on 02/19/17. NOTE Subjective: The patient is nonverbal at baseline. No acute changes overnight. Objective: Vitals: (see below) General: No acute distress, laying comfortably in bed. HEENT: Moist mucous membranes. Macroglossia. Airway patent. Neck: No JVD or lymphadenopathy Cardiac: Tachycardic. Regular rhythm. No murmurs Pulm: Diminished breath sounds b/l. No wheezing, rhonchi Abd: NT/ND + BS. Chronic edematous changes. No cellulitis. Ext: 1-2 + pitting edema BLE. No cyanosis. Labs (see below) Images: CT abdomen and pelvis 02/12/17 Impression: 1. Diffuse subcutaneous edema and skin thickening anteriorly of the abdominal and pelvic wall suggesting anasarca or other cause for this edema. 2. There is no renal, ureteral or bladder stone nor hydronephrosis. 3. No small-bowel dilatation, colonic obstruction or acute inflammatory process. 4. Enlarged left lobe of the liver, but small amount of ascites and fluid tracking into the peroneal gutters on both sides. No intra-abdominal or pelvic adenopathy. Bilateral inguinal adenopathy up to 18 mm for the largest nodes in short axis. CT Chest 02/12/17 Impression: 1. With interstitial and alveolar airspace opacities suggesting acute and chronic process. Some underlying fibrosis with patchy atelectasis or pneumonitis may certainly be suspected. Heavier curvilinear fibrotic change in the right apex. 2. No gross cardiomegaly, pericardial thickening or effusion. No adenopathy. 3. Bones without acute finding. Small bilateral effusions. Assessment/Plan 1. Hypoxic respiratory failure- likely multifactorial. Questionable committee acquired pneumonia versus aspiration pneumonia. Patient also has underlying obstructive sleep apnea and likely not complaint with CPAP at home. In addition to this patient has obesity hypoventilation syndrome, and likely has diastolic heart failure given his presentation. It appears that the patient likely has acute on chronic diastolic heart failure at this point. He has gained approximately 25 kg from his baseline weight. The skills trainer Dr. Duong as well as the button breaker believed that the patient may have a concomitant's defect in his atrioventricular repair and recommend transfer to a tertiary center for pediatric cardiology evaluation as well as possible cardiac catheterization. Continue with diuresing the patient. Echocardiogram with limited views although no systolic heart failure noted. 2. Obstructive sleep apnea- patient's home machine has been broken. Respiratory therapist to write patient with CPAP. The patient continues to struggle to tolerate the mask given his impaired cognition. 3. Prediabetes- A1c 6.2. Diet controlled. 4. Abdominal wall anasarca- patient does have chronic skin changes on exam, and likely has diastolic dysfunction with p possible ortal congestion. Continue to cautiously diurese the patient. 5. Traumatic Engle with results of hematuria and clots/acute blood loss anemia. Please see note from 02/14. No bleeding at this time. Spoke with Dr. Boyd today regarding the patient's pain all urination with the Engle intact. She recommends placing the patient and guardian 3 times a day and having a cystogram to ensure that the Engle catheters in the right place. 6. Acute kidney injury- avoid nephrotoxins. Start I/O. no hydronephrosis on CAT scan of the abdomen and pelvis. 7. Constipation- resolved. DVT prophylaxis- SCDs Awaiting transfer to [facility]. Awaiting for bed availability. VS,Fishbone, I+O VS, Fishbone, I+O Laboratory Tests 02/19/17 04:15 Red Blood Count 3.96 L, Mean Corpuscular Volume 104.1 H, Mean Corpuscular Hemoglobin 32.1, Mean Corpuscular Hemoglobin Concent 30.9 L, Red Cell Distribution Width 14.8 H, Calcium Level 8.3 L, Aspartate Amino Transf (AST/SGOT ) 17, Alanine Aminotransferase (ALT/SGPT) 23, Alkaline Phosphatase 63, Total Bilirubin 0.8, Total Protein 7.1, Albumin 2.9 L Vital Signs Date Time Temp Pulse Resp B/P (MAP) Pulse Ox O2 Delivery O2 Flow Rate FiO2 02/19/17 12:00 99.3 109 24 124/75 (91) 90 High Flow Cannula 02/19/17 07:30 25.0 I&O- Last 24 Hours up to 6 AM 02/19/17 05:59 Intake Total 1090 ml Output Total 3700 ml Balance -2610 ml BRIJESH BONNER MD Feb 19, 2017 14:41
[2017-02-19] MEDS: PHENAZOPYRIDINE 100 MG TAB PO SCH ×2 (17:13→20:55)
[2017-02-19] MEDS: FUROSEMIDE 40 MG/4 ML VIAL (J1940) IV SCH (20:55)
[2017-02-20] VITALS (12 sets, daily range): BP systolic 113–135; BP diastolic 68–78; O2SAT 86–96
[2017-02-20] MEDS: IPRATROPIUM 0.5MG/ALBUTEROL 2.5MG INH SOL UD 3ML (DUONEB)(J7620) NEB SCH ×4 (01:35→19:31)
[2017-02-20] MEDS: SODIUM CHLORIDE 0.9% INJ 10 ML SYR IV SCH ×2 (04:59→17:35)
[2017-02-20 05:15] LABS: MEAN CORPUSCULAR HEMOGLOBIN 31.9 pg (27.0-33.0); MEAN CORPUSCULAR VOLUME 103.2 fl (80.0-96.0); RED CELL DISTRIBUTION WIDTH 14.6 % (11.5-14.5); WHITE BLOOD COUNT 10.9 K/mm3 (4.0-10.0)
[2017-02-20] MEDS: MIRALAX *UNIT DOSE* 17GM PACKET PO SCH (09:00)
[2017-02-20] MEDS: AZITHROMYCIN INJ 500 MG, VIAL MATE ADAPTER 1 EACH in D5W 250 ML IV SCH (09:06)
[2017-02-20] MEDS: DOCUSATE SODIUM 100 MG CAP PO SCH ×2 (09:06→20:47)
[2017-02-20] MEDS: PHENAZOPYRIDINE 100 MG TAB PO SCH ×3 (09:06→20:47)
[2017-02-20] MEDS: FUROSEMIDE 40 MG/4 ML VIAL (J1940) IV SCH ×2 (09:07→20:48)
[2017-02-20] MEDS: NYSTATIN 100,000 UNITS/GM TOPICAL PWD 15 GM TOP SCH (09:07)
[2017-02-20 09:23] LABS: ALBUMIN 2.7 GM/DL (3.2-5.2); ALBUMIN/GLOBULIN RATIO 0.64 (1.00-1.93); ALKALINE PHOSPHATASE 59 U/L (45-117); ALT/SGPT 22 U/L (12-78); ANION GAP 7 MEQ/L (8-16); AST/SGOT 19 U/L (15-37); BILIRUBIN,TOTAL 0.8 MG/DL (0.2-1.0); BLOOD UREA NITROGEN 14 MG/DL (7-18); CALCIUM LEVEL 8.5 MG/DL (8.5-10.1); CARBON DIOXIDE LEVEL 38 MEQ/L (21-32); CHLORIDE LEVEL 94 MEQ/L (98-107); CREATININE FOR GFR 1.32 MG/DL (0.70-1.30); GLOMERULAR FILTRATION RATE > 60.0 (>60); GLUCOSE, FASTING 93 MG/DL (70-105); POTASSIUM SERUM 3.7 MEQ/L (3.5-5.1); SODIUM LEVEL 139 MEQ/L (136-145); TOTAL PROTEIN 6.9 GM/DL (6.4-8.2)
[2017-02-20] MEDS: SODIUM CHLORIDE 0.9% INJ 10 ML SYR IV PRN (10:35)
--- NOTE | 2017-02-20 15:22 | IPNPDOC ---
Text Note Date of Service The patient was seen on 02/20/17. NOTE Subjective: The patient is nonverbal at baseline. No acute changes overnight. Mother states he looks more comfortable and he feels like eating now. Objective: Vitals: (see below) General: No acute distress, laying comfortably in bed. HEENT: Moist mucous membranes. Macroglossia. Airway patent. Neck: No JVD or lymphadenopathy Cardiac: Tachycardic. Regular rhythm. No murmurs Pulm: Diminished breath sounds b/l. No wheezing, rhonchi Abd: NT/ND + BS. Chronic edematous changes. No cellulitis. Ext: 1-2 + pitting edema BLE. No cyanosis. Labs (see below) Images: CT abdomen and pelvis 02/12/17 Impression: 1. Diffuse subcutaneous edema and skin thickening anteriorly of the abdominal and pelvic wall suggesting anasarca or other cause for this edema. 2. There is no renal, ureteral or bladder stone nor hydronephrosis. 3. No small-bowel dilatation, colonic obstruction or acute inflammatory process. 4. Enlarged left lobe of the liver, but small amount of ascites and fluid tracking into the peroneal gutters on both sides. No intra-abdominal or pelvic adenopathy. Bilateral inguinal adenopathy up to 18 mm for the largest nodes in short axis. CT Chest 02/12/17 Impression: 1. With interstitial and alveolar airspace opacities suggesting acute and chronic process. Some underlying fibrosis with patchy atelectasis or pneumonitis may certainly be suspected. Heavier curvilinear fibrotic change in the right apex. 2. No gross cardiomegaly, pericardial thickening or effusion. No adenopathy. 3. Bones without acute finding. Small bilateral effusions. Assessment/Plan 1. Hypoxic respiratory failure- likely multifactorial. Questionable committee acquired pneumonia versus aspiration pneumonia. Patient also has underlying obstructive sleep apnea and likely not complaint with CPAP at home. In addition to this patient has obesity hypoventilation syndrome, and likely has diastolic heart failure given his presentation. It appears that the patient likely has acute on chronic diastolic heart failure at this point. He has gained approximately 25 kg from his baseline weight. The front desk Dr. Duong as well as the barrel dedenting machine operator believed that the patient may have a concomitant's defect in his atrioventricular repair and recommend transfer to a tertiary center for pediatric cardiology evaluation as well as possible cardiac catheterization. Continue with diuresing the patient. Echocardiogram with limited views although no systolic heart failure noted. Dr. Salgado consulted. 2. Obstructive sleep apnea- patient's home machine has been broken. Respiratory therapist to write patient with CPAP. The patient continues to struggle to tolerate the mask given his impaired cognition. 3. Prediabetes- A1c 6.2. Diet controlled. 4. Abdominal wall anasarca- patient does have chronic skin changes on exam, and likely has diastolic dysfunction with p possible ortal congestion. Continue to cautiously diurese the patient. 5. Traumatic Engle with results of hematuria and clots/acute blood loss anemia. Please see note from 02/14. No bleeding at this time. Spoke with Dr. Boyd today regarding the patient's pain all urination with the Engle intact. She recommends placing the patient and guardian 3 times a day and having a cystogram to ensure that the Engle catheters in the right place. 6. Acute kidney injury- avoid nephrotoxins. Improving. Monitor I/O. no hydronephrosis on CAT scan of the abdomen and pelvis. 7. Constipation- resolved. 8. Speech therapy evaluating patient for appropriate diet. DVT prophylaxis- SCDs Awaiting transfer to [facility]. Awaiting for bed availability. VS,Fishbone, I+O VS, Fishbone, I+O Laboratory Tests 02/20/17 04:45 Red Blood Count 3.96 L, Mean Corpuscular Volume 103.2 H, Mean Corpuscular Hemoglobin 31.9, Mean Corpuscular Hemoglobin Concent 31.0 L, Red Cell Distribution Width 14.6 H, Calcium Level 8.5, Aspartate Amino Transf (AST/SGOT) 19, Alanine Aminotransferase (ALT/SGPT) 22, Alkaline Phosphatase 59, Total Bilirubin 0.8, Total Protein 6.9, Albumin 2.7 L Vital Signs Date Time Temp Pulse Resp B/P (MAP) Pulse Ox O2 Delivery O2 Flow Rate FiO2 02/20/17 12:00 99.5 102 24 132/69 (90) 85 High Flow Cannula 15.0 I&O- Last 24 Hours up to 6 AM 02/20/17 05:59 Intake Total 2325 ml Output Total 3400 ml Balance -1075 ml BRIJESH BONNER MD Feb 20, 2017 15:22
--- NOTE | 2017-02-20 21:55 | CR ---
DATE OF CONSULTATION: 02/19/2017 REFERRING: Rohit Early MD REASON FOR THE CONSULT: Heart failure. 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 He was brought to the hospital on 02/12/2017 with shortness of breath, abdominal discomfort and he was found to be hypoxemic with oxygen saturation of 85% on room air. Further work up revealed pneumonia with findings consistent of aspiration pneumonia. He was admitted for further management and monitoring. He had an echocardiogram done on 02/13/2017 and it revealed a normal global ventricular systolic and diastolic function. No significant valvular heart disease. No findings, consistent with prior. Open surgery for congenital heart disease. He continues to be hypoxemic and has been difficult to control his edema. Cardiology consult was called. When I saw Mr. Shreyas Gonzalez this evening, he was supine in bed with mild shortness of breath at rest. The patient is nonverbal and also at that time was sleepy. His mother was at bedside, as well as other family members. The immediate plan is to transfer him to [facility] for further evaluation. There is no report of fever or chills. There is no focal manifestation. There is no nausea , vomiting, diarrhea, melena or hematemesis. He has a past medical history positive for morbid obesity and sleep apnea, asthma and seizures, he has not been on any medications, Down syndrome, psoriasis. There is no history of hypertension, hyperlipidemia, diabetes mellitus, kidney disease, thyroid disorders, left ventricular systolic dysfunction, significant valvular heart disease, cardiomyopathy, cerebrovascular accident (CVA), sudden cardiac . Past surgical history is positive for tonsillectomy, tympanostomy, and open heart surgery for congenital heart disease. MEDICATION PRIOR TO COMING TO THE HOSPITAL: None. CURRENT MEDICATIONS: - Lasix 40 mg IV twice a day - Apidra 100 mg by mouth three times a day - azithromycin 400 mg IV daily - Maalox daily one package. - Docusate sodium 100 mg by mouth twice a day - Milk of Magnesium 30 mL daily as needed for constipation - Fleet enema as needed for constipation. - DuoNeb 0.5 mg/2.5 mg every 12 hours as needed for shortness of breath and wheezing - Tylenol 650 mg every 4 hours for pain or mild fever - DuoNeb every 6 hours via inhalation. FAMILY HISTORY: Positive for hypertension, hyperlipidemia, morbid obesity and cancer. SOCIAL HISTORY: The patient lives with his mother, who is his legal guardian. He is single. He does not smoke or drink alcohol. He does not travel outside of the country. ALLERGIES: CEPHALOSPORIN. PHYSICAL EXAMINATION: The patient is alert, but sleepy. He is in no distress, but mild shortness of breath at rest. His latest vital sign today blood pressure 126/78 with a pulse of 107, respirations 20 to 24 and his maximum temperature today was 100.4 degrees Fahrenheit with an oxygen saturation of 90% via high flow nasal cannula. Examination of the head is normocephalic, atraumatic. Fundus examination was not done. Neck is supple. Could not appreciate any jugular venous distention (JVD) . The lungs did not reveal any wheezing or crackles. The heart examination revealed normal S1 and S2, mild tachycardiac. Point of maximal impulse (PMI) is displaced inferiorly and anteriorly. There is no rub. I could not appreciate any murmurs. Abdomen is soft and nontender. Extremities reveal +2 to +3 bilateral lower leg edema. Neuro exam is negative for focal deficit. LABORATORY: Basic metabolic panel (BMP) done today revealed a sodium 142, potassium 4.0, chloride 99, CO2 38, BUN 15, creatine 1.5. Glomerular filtration rate (GFR) 58.9, fasting glucose 102 and calcium 8.3. Magnesium is 2.2. Liver enzymes reveal a total bilirubin of 0.8, AST 17, ALT 23, alkaline phosphatase 63 , total protein 7.1 and albumin 2.9, serum hemoglobin A1c on admission ws 6.2. BNP on 02/14 was 105. Lipid profile on admission elevated cholesterol of 127, LDL 86 , HDL 24 and cholesterol/HDL ratio of 5.9. Thyroid simulating hormone (TSH) on admission was 6.9. Complete blood count (CBC) on 02/19/2017 revealed a white blood count (WBC) of 9.96, hemoglobin of 12.7, hematocrit 41.2, and [id number]. On admission, complete blood count (CBC) white blood count (WBC) of 9.1, hemoglobin 16.1, hematocrit 50.8 and platelets 186,000. Urinalysis was positive for white blood cells, red blood cells, blood and protein. Blood culture revealed no growth after five days. Urine culture also negative. Chest x-ray done on 02/16/2017 revealed extensive alveolar and interstitial opacities, chronic interstitial changes and there was slight improvement when compared with prior study. Chest CT done on 02/12/2017 revealed interstitial and alveolar airspace opacities, underlying pulmonary fibrosis with patch atelectasis and pneumonitis, but no gross cardiomegaly. There was small bilateral pleural effusion. Abdominal x-ray on admission revealed nonspecific gas bowel pattern. Left lower lobe atelectasis. Abdominal CT on 02/12/2017 revealed diffuse subcutaneous edema of the abdominal and pelvic wall suggesting anasarca. No hydronephrosis. There was no small bowel dilatation or colonic obstruction/inflammatory process. Small amount of ascites, but no intraabdominal or pelvic adenopathy. There was adenopathy at the level of the inguinal regions. Echocardiogram on 02/13/2017 revealed a normal global left ventricular systolic and diastolic function. No significant valvular heart disease. Electrocardiogram (EKG) on 02/14/2017 revealed sinus tachycardia and elevated premature ventricular contractions (PVCs). IMPRESSION: 27-year-old male with above medical problems was admitted on 02/12/2017 with pneumonia and the patient continued to be febrile. Chest x-ray also revealed manifestation of interstitial lung disease and pneumonitis. No manifestation of heart failure. His echocardiogram revealed a normal global left ventricular systolic and diastolic function. No significant valvular heart disease. He has diffuse bilateral pedal edema consistent with anasarca. He is on IV antibiotics and it seems that it was increased earlier today and I agree. For the last couple of days, he has been in a negative fluid balance and I will continue the same. We should monitor closely his BUN and creatine and serum potassium. I believe the immediate plan is to transfer him to [facility] and I agree. In the meantime, I will continue current management. I will continue to monitor him along with you as needed and we should try to keep him in a negative fluid balance. No further recommendation at this present time. He is also being monitored by pulmonology. It was a pleasure to participate in the care of Mr. Shreyas Gonzalez for his underlying cardiac condition. I will continue to monitor him along with you while in the hospital. At this time, he appears to be stable from a cardiac point of view. Please do not hesitate to call if any questions. KIMBERLY
[2017-02-21] VITALS (7 sets, daily range): BP systolic 136–140; BP diastolic 56–82; O2SAT 85–90
[2017-02-21] MEDS: IPRATROPIUM 0.5MG/ALBUTEROL 2.5MG INH SOL UD 3ML (DUONEB)(J7620) NEB SCH ×3 (01:35→13:16)
[2017-02-21] MEDS: SODIUM CHLORIDE 0.9% INJ 10 ML SYR IV SCH (04:44)
[2017-02-21 05:08] LABS: MEAN CORPUSCULAR HEMOGLOBIN 31.6 pg (27.0-33.0); MEAN CORPUSCULAR HGB CONC 30.8 g/dl (32.0-36.5); MEAN CORPUSCULAR VOLUME 102.9 fl (80.0-96.0); RED CELL DISTRIBUTION WIDTH 14.8 % (11.5-14.5); WHITE BLOOD COUNT 10.1 K/mm3 (4.0-10.0)
[2017-02-21 05:28] LABS: ALBUMIN 2.7 GM/DL (3.2-5.2); ALBUMIN/GLOBULIN RATIO 0.68 (1.00-1.93); ALKALINE PHOSPHATASE 69 U/L (45-117); ALT/SGPT 20 U/L (12-78); ANION GAP 6 MEQ/L (8-16); AST/SGOT 17 U/L (15-37); BILIRUBIN,TOTAL 0.8 MG/DL (0.2-1.0); BLOOD UREA NITROGEN 14 MG/DL (7-18); CALCIUM LEVEL 8.1 MG/DL (8.5-10.1); CARBON DIOXIDE LEVEL 43 MEQ/L (21-32); CHLORIDE LEVEL 91 MEQ/L (98-107); CREATININE FOR GFR 1.24 MG/DL (0.70-1.30); GLOMERULAR FILTRATION RATE > 60.0 (>60); GLUCOSE, FASTING 102 MG/DL (70-105); POTASSIUM SERUM 3.4 MEQ/L (3.5-5.1); SODIUM LEVEL 140 MEQ/L (136-145); TOTAL PROTEIN 6.7 GM/DL (6.4-8.2)
[2017-02-21] MEDS: DOCUSATE SODIUM 100 MG CAP PO SCH (08:12)
[2017-02-21] MEDS: MIRALAX *UNIT DOSE* 17GM PACKET PO SCH (08:12)
[2017-02-21] MEDS: FUROSEMIDE 40 MG/4 ML VIAL (J1940) IV SCH (08:13)
[2017-02-21] MEDS: PHENAZOPYRIDINE 100 MG TAB PO SCH (08:13)
[2017-02-21] MEDS: NYSTATIN 100,000 UNITS/GM TOPICAL PWD 15 GM TOP SCH (08:14)
[2017-02-21] MEDS: ACETAMINOPHEN TAB 650MG DOSE (2X325MG) PO PRN (08:14)
[2017-02-21] MEDS: AZITHROMYCIN INJ 500 MG, VIAL MATE ADAPTER 1 EACH in D5W 250 ML IV SCH (08:14)
[2017-02-21] MEDS ORDERED: AZIT500T2 PO (12:58)
[2017-02-21] MEDS ORDERED: FURO40VL IV (12:58)
[2017-02-21 13:40] LABS: MAGNESIUM LEVEL 2.1 MG/DL (1.8-2.4)
--- NOTE | 2017-02-21 15:37 | DS.PDOC ---
Discharge Summary General Date of Admission Feb 12, 2017 at 15:49 Date of Discharge 02/21/17 Attending Physician: BRIJESH BONNER MD Specialist/Consultants Involve: ELDON ALMANZA MD Specialist/Consultants Involve Dr. Duong Discharge Summary PROCEDURES PERFORMED DURING STAY: None. ADMITTING/DISCHARGE DIAGNOSES: 1. Severe Hypoxia 2. 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 3. Obstructive sleep apnea 4. Prediabetes 5. Abdominal wall anasarca 6. Traumatic Engle with result of hematuria 7. Acute kidney injury 8. Constipation COMPLICATIONS/CHIEF COMPLAINT: Aspiration Pneumonia. 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 Apparently patient has not followed up with a welding machine operator in over 10 years. The patient's CPAP machine has also been broken raising suspicion that the patient's machine may not have been functioning at home. Patient presents with shortness of breath and found to be hypoxic requiring high levels of oxygen. Patient was initially treated for aspiration pneumonia, however continued to decompensate. It was also noted volume overloaded with significant anasarca. He was started on IV Lasix diuresis and diuresed well. Over the course of hospitalization, a Engle catheter was placed and patient did have hematuria as a results of this, as described in the notes from 02/14. Hematuria has since resolved. The patient was evaluated by critical care as well as cardiology with recommendations for transfer to a tertiary center as the patient's prior atrioventricular repair may be effected. His large body size with a BMI of 62 limits the echocardiogram as well as imaging studies. We appreciate [facility] for assisting us with the care of this patient. DISCHARGE MEDICATIONS: Please see below. ALLERGIES: Please see below. PHYSICAL EXAMINATION ON DISCHARGE: Vitals: (see below) General: No acute distress, laying comfortably in bed. HEENT: Moist mucous membranes. Macroglossia. Airway patent. Neck: No JVD or lymphadenopathy Cardiac: Tachycardic. Regular rhythm. No murmurs Pulm: Diminished breath sounds b/l. No wheezing, rhonchi Abd: NT/ND + BS. Chronic edematous changes. No cellulitis. Ext: 1-2 + pitting edema BLE. No cyanosis. LABORATORY DATA: Please see below. IMAGING: CT abdomen and pelvis 02/12/17 Impression: 1. Diffuse subcutaneous edema and skin thickening anteriorly of the abdominal and pelvic wall suggesting anasarca or other cause for this edema. 2. There is no renal, ureteral or bladder stone nor hydronephrosis. 3. No small-bowel dilatation, colonic obstruction or acute inflammatory process. 4. Enlarged left lobe of the liver, but small amount of ascites and fluid tracking into the peroneal gutters on both sides. No intra-abdominal or pelvic adenopathy. Bilateral inguinal adenopathy up to 18 mm for the largest nodes in short axis. CT Chest 02/12/17 Impression: 1. With interstitial and alveolar airspace opacities suggesting acute and chronic process. Some underlying fibrosis with patchy atelectasis or pneumonitis may certainly be suspected. Heavier curvilinear fibrotic change in the right apex. 2. No gross cardiomegaly, pericardial thickening or effusion. No adenopathy. 3. Bones without acute finding. Small bilateral effusions. PROGNOSIS: Guarded ACTIVITY: As tolerated. DIET: Mechanical soft. DISCHARGE PLAN/DISPOSITION: 02 Xfer To Acute Hosp. DISCHARGE INSTRUCTIONS: 1. F/u with recommendations of physicians at [facility]. DISCHARGE CONDITION: Stable. TIME SPENT ON DISCHARGE: Greater than 30 minutes. Vital Signs/I&Os Vital Signs Date Time Temp Pulse Resp B/P (MAP) Pulse Ox O2 Delivery O2 Flow Rate FiO2 02/21/17 12:00 97.0 96 20 136/56 (82) 93 High Flow Cannula 25.0 I&O- Last 24 Hours up to 6 AM 02/21/17 06:00 Intake Total 495 ml Output Total 6550 ml Balance -6055 ml Laboratory Data Labs 24H Laboratory Tests 2 02/21/17 04:42: Anion Gap 6L, Glomerular Filtration Rate > 60.0, Blood Urea Nitrogen 14, Creatinine 1.24, Sodium Level 140, Potassium Level 3.4L, Chloride Level 91L, Carbon Dioxide Level 43H, Calcium Level 8.1L, Aspartate Amino Transf (AST/SGOT) 17, Alanine Aminotransferase (ALT/SGPT) 20, Alkaline Phosphatase 69, Total Bilirubin 0.8, Total Protein 6.7, Albumin 2.7L, Magnesium Level 2.1, Albumin/ Globulin Ratio 0.68L CBC/BMP Laboratory Tests 02/21/17 04:42 Red Blood Count 4.01 L, Mean Corpuscular Volume 102.9 H, Mean Corpuscular Hemoglobin 31.6, Mean Corpuscular Hemoglobin Concent 30.8 L, Red Cell Distribution Width 14.8 H, Calcium Level 8.1 L, Aspartate Amino Transf (AST/SGOT ) 17, Alanine Aminotransferase (ALT/SGPT) 20, Alkaline Phosphatase 69, Total Bilirubin 0.8, Total Protein 6.7, Albumin 2.7 L Microbiology Microbiology 02/17/17 Blood Culture - Preliminary, Resulted No Growth after 72 hours. All specime... 02/17/17 Blood Culture - Preliminary, Resulted No Growth after 72 hours. All specime... 02/12/17 Blood Culture - Final, Complete NO GROWTH AFTER 5 DAYS 02/12/17 Blood Culture - Final, Complete NO GROWTH AFTER 5 DAYS 02/21/17 Gram Stain - Final, Resulted 02/21/17 Sputum Culture, Resulted Pending 02/16/17 Respiratory Virus Panel (PCR) (TRISHA) - Final, Complete 02/17/17 Urine Culture - Final, Complete 02/14/17 Urine Culture - Final, Complete Discharge Medications Scheduled Albuterol/Ipratropium (Ipratropium [place]/Albut 0.5-2.5 (3) mg/3Ml) 1 Ana Ana, 3 ML NEB RQ6H Azithromycin (Azithromycin) 500 Mg Tab, 500 MG PO DAILY Furosemide (Furosemide) 10 Mg/Ml Inj, 40 MG IV BID Nystatin (Nystop Powder) 1 Dose/15 Gm Powd, 0 DOSE TOP DAILY apply to groin and abdominal folds Scheduled PRN Albuterol/Ipratropium (Ipratropium [place]/Albut 0.5-2.5 (3) mg/3Ml) 1 Ana Ana, 3 ML NEB Q2HP PRN for SOB/WHEEZING Allergies Coded Allergies: Cephalosporins (Verified Allergy, Intermediate, HIVES & RASH, 10/19/12) BRIJESH BONNER MD Feb 21, 2017 15:37
== END 2017-02-21 14:52 | disposition short-term general hospital (02) | DRG 137 ==
LOC: M ED 07:45 → EDBD 07:45 → OBSVTOIN 15:49 → M ED INP 15:49 → M PCU 17:37
PROVIDERS: ADMIT Internal Medicine; ATTEND Internal Medicine
PROC: 02HV33Z Insertion of Infusion Device into Superior Vena Cava, Percutaneous Approach (ICD-10-PCS; principal; 2017-02-13)
DX: J69.0 Pneumonitis due to inhalation of food and vomit (principal); J96.01 Acute respiratory failure with hypoxia; I50.33 Acute on chronic diastolic (congestive) heart failure; Z68.44 Body mass index [BMI] 60.0-69.9, adult; N17.9 Acute kidney failure, unspecified; Q90.9 Down syndrome, unspecified; E66.01 Morbid (severe) obesity due to excess calories; D62 Acute posthemorrhagic anemia; R60.1 Generalized edema; G47.33 Obstructive sleep apnea (adult) (pediatric); K59.00 Constipation, unspecified; R31.9 Hematuria, unspecified; Z79.899 Other long term (current) drug therapy; Z88.8 Allergy status to other drugs, medicaments and biological substances; L40.8 Other psoriasis; T83.091A Other mechanical complication of indwelling urethral catheter, initial encounter

== ENCOUNTER 2017-03-05 09:35 | Emergency (ER) | payer MEDICAID ==
[~2017-03-05] VITALS: Ht 162.6 cm; Wt 162.7 kg
[~2017-03-05 09:35] MED LIST changes: +AZIT500T2 PO; +FURO40VL IV; +IPRASOL4 NEB; +NYST10PW TOP; +VANC1VLAD INJ; +[UNRECOGNIZED DRUG - CODE] IV
[2017-03-05] MEDS ORDERED: OXYB5TAB10 PO (09:52)
[2017-03-05] MEDS ORDERED: SPIR50TA2 PO (09:52)
[2017-03-05] MEDS ORDERED: TORS20TA2 PO (09:52)
[2017-03-05] MEDS ORDERED: DOK100TA PO (09:52)
--- NOTE | 2017-03-05 10:51 | REP ---
PORTABLE CHEST: AP portable view of the chest is performed and compared to a prior study of 02/16/2017. There is cardiomegaly. Increased interstitial and alveolar opacities bilaterally are essentially unchanged. Study is limited due to body habitus. Mediastinal silhouette is unchanged. IMPRESSION: Cardiomegaly. Stable bilateral diffuse interstitial and alveolar opacities, with no change since prior study of 02/16/2017. Signed by Lonnie Estrada MD 03/05/2017 04:41 P
--- NOTE | 2017-03-05 11:04 | REP ---
CT Head without contrast HISTORY: Fall COMPARISON: 05/04/2007 There is no intraparenchymal hemorrhage, acute infarct, mass or midline shift. Calcifications are present in the basal ganglia. The ventricular system is normal in appearance. There is no extra cerebral collection. There is no fracture. The visualized sinuses are clear. IMPRESSION: There is no intracranial lesion. Signed by Thomas Ricardo MD 03/05/2017 10:55 A
--- NOTE | 2017-03-05 11:12 | REP ---
CT ABDOMEN PELVIS WITHOUT CONTRAST: HISTORY: Injury in a fall down stairs. Comparison study February 12, 2017. CT FINDINGS: Preliminary digital builder beam radiograph shows an unremarkable bowel gas pattern. The lung bases are essentially clear. The previously noted pleural effusions have resolved. A small sliding-type hiatal hernia is noted. No evidence of free intraperitoneal air or ascites is seen. The liver and the spleen are normal in size and texture. Gallbladder and pancreas are unremarkable. No adrenal lesion is seen. The kidneys appear morphologically intact. There is a diffuse subcutaneous edema pattern and some dermal thickening in the anterior abdominal wall again noted unchanged from February 12, 2017. Seminal vesicles, prostate, and urinary bladder are unremarkable. No mass or adenopathy seen. Bone window settings show no fracture. There is a bilateral L5 spondylolysis. Degenerative disc changes are seen at L5-S1 with partially calcified posterior disc bulge. This is unchanged. IMPRESSION: 1. No traumatic abnormality noted. 2. Small hiatal hernia. Diffuse subcutaneous edema and dermal thickening anterior abdominal wall unchanged from February 12, 2017, question cellulitis. 3. Bilateral L5 spondylolysis chronic. No spondylolisthesis. Signed by Kofi Sheldon MD 03/05/2017 03:20 P
--- NOTE | 2017-03-05 11:14 | REP ---
CT CERVICAL SPINE WITHOUT CONTRAST: HISTORY: Fall. The examination is limited secondary to the patient's body habitus. There is no fracture or subluxation. There is no definite disc bulge or herniation. The spinal canal and neural foramina are patent. The intervertebral discs are normal in height. The anterior osteophytes are present at the C2-3 level. There is nonunion of the C1 posterior neural arch. IMPRESSION: There is no acute fracture or subluxation. Signed by Thomas Ricardo MD 03/05/2017 11:17 A
--- NOTE | 2017-03-05 11:28 | REP ---
CT CHEST WITHOUT IV CONTRAST: HISTORY: Injury in a fall down stairs. Comparison study February 12, 2017. CT FINDINGS: Digital histological illustrator radiograph shows no abnormality. There is a small sliding hiatal hernia. No pleural or pericardial effusion is seen. The lungs are exposed at a poor inspiratory level and there is respiratory motion artifact. The appearance of the lung parenchyma is unchanged from February 12, 2017. No definite infiltrate seen. No pneumothorax or hemothorax is seen. The mediastinum shows no evidence of adenopathy. Bone window settings demonstrate ununited manubrial ossification center but no evidence of fracture. No other fracture is seen. IMPRESSION: No traumatic abnormality. Some respiratory motion artifact. Signed by Kofi Sheldon MD 03/05/2017 03:21 P
[2017-03-05 13:31] VITALS: BP 162/98
--- NOTE | 2017-03-05 18:38 | ECGEPIP ---
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 RBBB VOLTAGE CRITERIA FOR LVH NSTTW ABNORMALITIES SIMILAR TO 01/08/15 Electronically Signed On 03-05-2017 18:37:58 EDT by Isidro Washington
== END 2017-03-05 13:43 | disposition home or self-care (01) ==
LOC: EDBD 09:35 → M ED 09:35
DX: S09.90XA Unspecified injury of head, initial encounter (principal); S16.1XXA Strain of muscle, fascia and tendon at neck level, initial encounter; W19.XXXA Unspecified fall, initial encounter; X58.XXXA Exposure to other specified factors, initial encounter; Y92.9 Unspecified place or not applicable; Y93.9 Activity, unspecified; Y99.9 Unspecified external cause status; I50.9 Heart failure, unspecified; K44.9 Diaphragmatic hernia without obstruction or gangrene; M47.896 Other spondylosis, lumbar region; I51.7 Cardiomegaly; Z79.899 Other long term (current) drug therapy; Z88.1 Allergy status to other antibiotic agents